=== PATIENT | male | born 1990 | race Caucasian/White ===

== ENCOUNTER 2019-05-12 15:48 | Outpatient (REF) | payer MEDICAID, SELFPAY | END 2019-05-12 16:08 | LOC: NCHCN 15:48 | PROVIDERS: PCP Specialist/Technologist Athletic Trainer; Visit Provider Nurse Practitioner Family | DX: J06.9 Acute upper respiratory infection, unspecified (principal) | CPT/HCPCS: 87070 ==

== ENCOUNTER 2019-07-28 20:27 | Outpatient (REF) | payer MEDICAID, SELFPAY | END 2019-07-28 20:47 | LOC: NCHCN 20:27 | PROVIDERS: PCP Specialist/Technologist Athletic Trainer; Visit Provider Nurse Practitioner Family | DX: J02.9 Acute pharyngitis, unspecified (principal) | CPT/HCPCS: 87081 ==

== ENCOUNTER 2020-05-10 13:36 | Emergency (ER) | payer MEDICAID, SELFPAY ==
[2020-05-10 13:41] VITALS: BP 136/96; PULSE 84; RESP 16; TEMP 36.8; O2SAT 95
--- NOTE | 2020-05-10 14:31 | W.ED.GENAD ---
Discharge Plan Disposition Patient Disposition: HOME Condition: Stable Discharge Details Chief Complaint: GenMedical Clinical Impression: Encounter for medical screening examination, Nausea & vomiting Primary Care Provider: [facility] ED Provider: Florin Milton Home Meds and New Rx's Prescriptions: No Action No Known Home Meds RF: 0 Discharge Instructions Instructions: Acute Nausea and Vomiting (ED) Additional Instructions: At this time you do not have a fever. Further work-up in the ER was offered but declined. Please watch for new or worsening symptoms and return to the ER for any concerns. Clear liquid diet, advance diet as tolerated. I do recommend you reach out to your primary care provider for prompt outpatient reevaluation Medical Decision Making 29-year-old gentleman who denies any significant past medical history presents for evaluation. He is requesting that his temperature be checked. He woke up around noon today, did not feel well in general, had one episode of vomiting. Now is asymptomatic. Temperature check at work was 95.8 and he did not believe this temperature to be accurate. He reports his parents are diabetics. Fingerstick here in the ER is 128. Temperature here in the ER of 36.8. Blood pressure 136/96. Pulse 84, O2 sats 95% on room air. We discussed his vital signs including his temperature, patient is currently afebrile. Patient has no additional questions or concerns and is requesting to be discharged. I spoke with the patient regarding his symptoms, discussed that we could offer laboratory values such as blood work and urinalysis, give fluids whether this be through an IV or orally, and nausea medication. He declines this and is relieved that he does not have a fever, would like to be discharged. HPI General Mode of arrival: ambulatory. Date/Time Provider Initiated Documentation: 05/10/20 13:44. Limitations to Documentation: no limitations. Information obtained by: patient. HPI Narrative: 29-year-old gentleman with no past medical history presents to the ER requesting his temperature. Being checked. He woke up around noon today, reports he generally did not feel well. He felt warm, sweaty, had a mild nausea and heartburn. He had 1 episode of vomiting at work. Since that time he reports that he actually feels significantly better, denies any nausea or vomiting now. Has been able to hold down juice without difficulty. He states that they checked his temperature at work and it was 95.8 and he felt as though that was too low so he wanted to come to the ER to have a temperature rechecked. He is currently asymptomatic. Related Data Home Medications Medication Instructions Recorded Confirmed Unknown [No Known Home Meds] 05/10/20 05/10/20 Allergies Allergy/AdvReac Type Severity Reaction Status Date / Time No Known Allergies Allergy Unverified 05/10/20 13:50 General Stated Complaint: GenMedical [place]: 3 Review of Systems Constitutional Constitutional: Denies fatigue, Denies fever(s) and Denies headache(s) ENT Ears, Nose, Mouth, and Throat: Denies headache(s) and Denies sore throat Cardiovascular Cardiovascular: Denies chest pain and Denies dyspnea Respiratory Respiratory: Denies cough and Denies dyspnea Gastrointestinal Gastrointestinal: Denies abdominal pain, Reports nausea and Reports vomiting Genitourinary Genitourinary: Denies difficulty urinating Musculoskeletal Musculoskeletal: Denies back pain Neurologic Neurologic: Denies headache(s) Endocrine Endocrine: Denies fatigue [facility] Social History Smoking/Tobacco Use Status: Current every day Tobacco Type: cigarettes Alcohol Intake: current Alcohol Intake frequency: 0-2 drinks per day Alcohol type: hard liquor Drug use: Never Substance use type: does not use Do you feel safe at home: Yes Do you feel safe in your relationship?: Yes Exam Const General: cooperative, healthy appearing, comfortable and no acute distress Orientation: alert, awake and oriented x3 HENMT Head: normal to inspection, normocephalic and atraumatic Ears: external ears normal, TM's normal bilaterally and EAC's normal General nose exam: external nose normal Face and sinus: normal facial exam Mouth: oral mucosae normal and moist mucous membranes Throat: posterior oropharynx normal Eyes Conjunctivae: conjunctivae normal Sclera: sclerae normal Neck Neck: normal visual inspection, full ROM, no lymphadenopathy, no meningeal signs, trachea midline, supple and nontender Resp Effort & Inspection: normal respiratory effort and able to speak in complete sentences Auscultation: clear to auscultation bilaterally Cardio Rate: regular rate Rhythm: regular rhythm GI Palpation: soft and nontender Back/Spine/Pelvis Back: No back tenderness Neuro General: patient alert, patient awake, moves all extremities and no focal motor deficits Cognition: normal cognition Speech: speech normal Gait: normal gait Motor: muscle tone normal throughout Sensory Exam: no sensory deficits noted Psych Appearance: grossly normal Mental Status: mental status grossly normal Course Vital Signs Vital signs: Vital Signs Temperature 36.8 C 05/10/20 13:41 Pulse 84 05/10/20 13:41 Respiratory Rate 16 05/10/20 13:41 Blood Pressure 136/96 H 05/10/20 13:41 Pulse Oximetry 95 05/10/20 13:41 Temperature 36.8 C 05/10/20 13:41 Temperature Source Oral 05/10/20 13:41 Pulse 84 05/10/20 13:41 Respiratory Rate 16 05/10/20 13:41 Respiratory Effort Non-Labored 05/10/20 14:00 Respiratory Depth Normal 05/10/20 14:00 Respiratory Pattern Normal 05/10/20 14:00 Blood Pressure 136/96 H 05/10/20 13:41 Blood Pressure Position Sitting 05/10/20 13:41 Pulse Oximetry 95 05/10/20 13:41 Oxygen Delivery Method Room Air 05/10/20 13:41 Oxygen Flow Rate 0 05/10/20 13:41 Pain Level 0 05/10/20 13:41
== END 2020-05-10 14:41 | disposition home or self-care (01) ==
PROVIDERS: Emergency Provider Physician Assistant; PCP Specialist/Technologist Athletic Trainer
DX: R11.2 Nausea with vomiting, unspecified (principal); Z83.3 Family history of diabetes mellitus
CPT/HCPCS: 36416; 82962; 99282

== ENCOUNTER 2020-11-21 20:43 | Outpatient (REF) | payer MEDICAID, SELFPAY ==
[2020-11-23 13:13] LABS: COVID-19 RT-PCR UVMMC Result Negative (Negative)
== END 2020-11-21 20:44 | disposition home or self-care (01) ==
LOC: NCHCN 20:43
PROVIDERS: PCP Specialist/Technologist Athletic Trainer; Visit Provider Acupuncturist
DX: Z20.822 Contact with and (suspected) exposure to COVID-19 (principal); J06.9 Acute upper respiratory infection, unspecified
CPT/HCPCS: U0003

== ENCOUNTER 2021-07-05 16:25 | Outpatient (REF) | payer MEDICAID, SELFPAY ==
[2021-07-07 16:04] LABS: COVID-19 RT-PCR UVMMC Result Negative (Negative)
== END 2021-07-05 16:26 | disposition home or self-care (01) ==
LOC: LBN 16:25
PROVIDERS: PCP Specialist/Technologist Athletic Trainer; Visit Provider Physician Assistant Medical
DX: Z20.822 Contact with and (suspected) exposure to COVID-19 (principal); J02.9 Acute pharyngitis, unspecified
CPT/HCPCS: U0003; 87070

== ENCOUNTER 2021-11-29 12:39 | Emergency (ER) | payer MEDICAID, SELFPAY ==
[2021-11-29 12:50] VITALS: BP 144/94; PULSE 79; RESP 16; TEMP 36.5; O2SAT 98
--- NOTE | 2021-11-29 13:30 | W.ED.GENAD ---
Discharge Plan Disposition Patient Disposition: HOME Condition: Stable Discharge Details Clinical Impression: Carpal tunnel syndrome Primary Care Provider: Unknown,Unknown ED Provider: Madeline Kern Home Meds and New Rx's Prescriptions: New diclofenac sodium [Voltaren Arthritis Pain] 1 % gel 2 g topical QID Qty: 100 0RF Rx Instructions: apply to single elbow, wrist or hand; for hand includes palm/fingers/back of hand Discharge Instructions Additional Instructions: Use your splint as instructed Limit repetitive motion Follow-up with physical therapy I am giving you a week off of work, take ibuprofen 600 mg every 8 hours with food Take Tylenol 650 mg every 6 hours as needed for pain Use leg may apply the diclofenac gel, if your insurance does not cover this medication, you may purchase [id number] and is likely less expensive Stand Alone Forms: Physical Therapy Referral, Work Release Referrals: Aleksander Young MD [ [facility] STAFF PHYSICIAN] - Discharge Data Discharge Date/Time-TO BE ENTERED AT DEPARTURE: 11/29/21 13:40 Medical Decision Making Phalen's test positive, high suspicion for carpal tunnel syndrome unfortunately bilaterally Wrist splint and referral to orthopedics in the outpatient setting I think patient would benefit from physical therapy prior to seeing orthopedics for conservative therapy no evidence of infectious etiology of patient's complaints Instructed to take ibuprofen Given a week off as this was likely a repetitive use injury No clear indication for x-ray imaging, now with trauma to the affected area, tenderness to bilateral elbows Neurovascularly intact Medical Records Medical records reviewed: Yes I reviewed the patient's medical records. Lab Data Lab results reviewed: Yes I reviewed the patient's lab results. HPI General Date/Time Provider Initiated Documentation: 11/29/21 13:17. HPI Narrative: This 31-year-old gentleman presents with bilateral wrist pain, left worse than right. 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 He states that this has dramatically worsened his pain. He has radiation into his middle finger. He states in the morning pain is worse. He has not followed up with his PCP. He denies any additional complaints at this time. Denies any strength change. States that he had a week off from work his symptoms improved. Denies any known traumatic injury. Related Data Home Medications Medication Instructions Recorded Confirmed diclofenac sodium 1 % topical gel 2 g TOPICAL QID #100 g 11/29/21 (Voltaren Arthritis Pain) Previous Rx's Medication Instructions Recorded diclofenac sodium 1 % topical gel 2 g TOPICAL QID #100 g 11/29/21 (Voltaren Arthritis Pain) Allergies Allergy/AdvReac Type Severity Reaction Status Date / Time No Known Allergies Allergy Unverified 11/29/21 12:57 General Stated Complaint: Orthopedic [place]: 4 Review of Systems All systems reviewed & are unremarkable except as noted in HPI and below PFSH All Active Problems (Updated 11/29/21 @ 13:36 by LATOYA Jones) Vomiting (Acute) Carpal tunnel syndrome (Acute) Social History Smoking/Tobacco Use Status: Current every day Tobacco Type: cigarettes Smoking risk assessment performed?: Yes Alcohol Intake: current Alcohol Intake frequency: a few times a week Alcohol type: hard liquor Drug use: Never Substance use type: does not use Do you feel safe at home: Yes Do you feel safe in your relationship?: Yes Exam Const General: cooperative, comfortable and no acute distress Extrem Other: Bilateral wrist tenderness, left greater than right Phalen's test positive Neurovascularly intact, no erythema or evidence of secondary infection Course Vital Signs Vital signs: Vital Signs Temperature 36.5 C 11/29/21 12:50 Pulse 79 11/29/21 12:50 Respiratory Rate 16 11/29/21 12:50 Blood Pressure 144/94 H 11/29/21 12:50 Pulse Oximetry 98 11/29/21 12:50 Temperature 36.5 C 11/29/21 12:50 Temperature Source Temporal Artery Scan 11/29/21 12:50 Pulse 79 11/29/21 12:50 Respiratory Rate 16 11/29/21 12:50 Respiratory Effort Non-Labored 11/29/21 12:55 Blood Pressure 144/94 H 11/29/21 12:50 Blood Pressure Position Sitting 11/29/21 12:50 Pulse Oximetry 98 11/29/21 12:50 Oxygen Delivery Method Room Air 11/29/21 12:50 Oxygen Flow Rate 0 11/29/21 12:50 Pain Level 3 11/29/21 12:58 PAWSS Have you Been Recently Intoxicated or Drunk Within the Last 30 days?: No Have you Ever Experienced Previous Episodes of Alcohol Withdrawal?: No Have you ever Experienced Withdrawal Seizures?: No Have you ever Experienced Delirium Tremens(DT)s?: No Have you ever undergone Alcohol Rehabilitation Treatment (i.e, inpt ot outpatient treatment programs)?: No Have you ever Experienced Blackouts?: No Have you ever Combined Alcohol with other Downers within the last 90 days?: No Have you ever Combined Alcohol with any other Substance of Abuse during the last 90 days?: No Positive Blood Alcohol level on Presentation? [PCS.BAL]: No Evidence of Increased Autonomic Activity (i.e. HR>120, tremor, sweating, agitation, nausea)?: No Result: 0
== END 2021-11-29 13:40 | disposition home or self-care (01) ==
PROVIDERS: Emergency Provider Physician Assistant
DX: G56.03 Carpal tunnel syndrome, bilateral upper limbs (principal)
CPT/HCPCS: 29125; 99283

== ENCOUNTER 2022-01-17 04:24 | Outpatient (CLI) | payer MEDICAID, SELFPAY ==
[2022-01-17 11:20] LABS: Glucose 165 mg/dL (74-106)
[2022-01-17 11:27] LABS: Calculated LDL 168 mg/dL (<100); Cholesterol 245 mg/dL (<200); HDL Cholesterol 41 mg/dL (40-60); Triglyceride 184 mg/dL (<150)
[2022-01-18 09:35] LABS: Hepatitis C Ab w Rflx HCV PCR Negative (Negative)
[2022-01-18 09:53] LABS: HIV-1/2 Ag & Ab Screen Negative (Negative)
== END 2022-01-17 04:25 | disposition home or self-care (01) ==
LOC: LBO 04:24
PROVIDERS: PCP Nurse Practitioner Family; Visit Provider Nurse Practitioner Family
DX: Z13.220 Encounter for screening for lipoid disorders (principal); Z13.1 Encounter for screening for diabetes mellitus; Z11.59 Encounter for screening for other viral diseases; Z11.4 Encounter for screening for human immunodeficiency virus [HIV]
CPT/HCPCS: 36415; 80061; 82947; 86803; 87389

== ENCOUNTER 2022-04-09 17:10 | Outpatient (REF) | payer MEDICAID, SELFPAY | END 2022-04-09 17:11 | disposition home or self-care (01) | LOC: LBN 17:10 | PROVIDERS: PCP Nurse Practitioner Family; Visit Provider Physician Assistant | DX: J02.9 Acute pharyngitis, unspecified (principal) | CPT/HCPCS: 87077; 87070 ==

== ENCOUNTER 2022-05-19 15:22 | Emergency (ER) | payer MEDICAID, SELFPAY ==
[2022-05-19 15:26] VITALS: BP 152/103; PULSE 102; RESP 16; TEMP 36.7; O2SAT 98
--- NOTE | 2022-05-19 15:56 | W.ED.GENAD ---
Discharge Plan Disposition Patient Disposition: HOME Condition: Stable Discharge Details Clinical Impression: Left flank pain, Leukocytosis Primary Care Provider: Daniella Stout ED Provider: Florin Milton Home Meds and New Rx's Prescriptions: No Action No Known Home Meds Discharge Instructions Instructions: Leukocytosis (ED), Flank Pain (ED) Additional Instructions: Your work-up in the ER reveals an unspecific mild elevated white count. We discussed the next step to further evaluate this would be a CAT scan which you would prefer not to pursue at this time. [id number] Tylenol and/or Motrin as directed for discomfort. Please watch for new or worsening symptoms and return to the ER for any concerns. Lastly, please contact your primary care provider on Saturday to discuss your ER visit, ongoing symptoms, need for outpatient reevaluation. Medical Decision Making This is a 31-year-old gentleman who is otherwise healthy presenting for a left-sided flank pain that began a couple of days ago, feels like he pulled a muscle in his sleep. He reports he went to bed asymptomatic and woke up with the pain. He denies recent illness or trauma. Denies any other symptoms such as fever, chest pain, shortness of breath, back pain, nausea, vomiting, dysuria, hematuria, etc. He reports alcohol use a couple times a week. Plan is to obtain IV access, routine screening laboratory values including a lipase and a urinalysis CBC reveals nonspecific leukocytosis of 13.64 CMP unremarkable for any obvious emergent process. Urinalysis unremarkable. Lipase of 66. No clear explanation of the symptoms. He does report it feels like a pulled muscle and is worse with movement, certainly could be but given his presentation of tachycardia of 102 in triage will obtain an EKG, troponin and D-dimer Troponin and D-dimer unremarkable. Heart rate in the 80s. He appears well, nontoxic. Chest x-ray and EKG are both unremarkable Upon reevaluation he appears well, nontoxic. We discussed his work-up thus far. No clear explanation of his symptoms or leukocytosis although he appears well, nontoxic. At this time we discussed obtaining CT imaging of his abdomen and pelvis with IV contrast for further evaluation but given the duration he has stayed in the ER already he declines. He would rather treat his symptoms and watch watch carefully. Plan is to provide 30 IV Toradol now he was given strict return precautions and otherwise will reach out to his primary care provider on Saturday Standard discharge and return precautions were provided. Patient understands, is agreeable to this plan, and has no additional questions or concerns upon discharge. This documentation was generated using Proximusation system, please disregard any oddities of phrase or misspellings. Medical Records Medical records reviewed: Yes I reviewed the patient's medical records. Imaging Data Radiologic Study: Attestation: I personally reviewed and interpreted this imaging study as follows: Imaging: X-Ray Radiologist's impression: PROCEDURE INFORMATION: Exam: XR Chest Exam date and time: 05/19/2022 5:37 PM Age: 31 years old Clinical indication: Other: Luq pain TECHNIQUE: Imaging protocol: Radiologic exam of the chest. Views: 2 views. COMPARISON: CR CHEST 2 VIEWS PA,LAT 05/20/2015 10:53 AM FINDINGS: Lungs: Unremarkable. No consolidation. Pleural spaces: Unremarkable. No pleural effusion. No pneumothorax. Heart/Mediastinum: Unremarkable. No cardiomegaly. Bones/joints: Unremarkable. IMPRESSION: No acute findings. Lab Data Lab results reviewed: Yes I reviewed the patient's lab results. Labs: Laboratory Tests Range/Units 05/19/22 05/19/22 05/19/22 15:35 16:20 16:20 WBC (4.4-10.8) 10^3/uL 13.64 H RBC (4.36-5.78) 10^6/uL 4.79 Hgb (13.5-17.5) g/dL 15.1 Hct (40.0-50.0) % 42.0 MCV (80-95) fL 88 MCH (27.0-33.0) pg 31.5 MCHC (32.0-36.0) % 36.0 RDW (11.8-14.1) % 12.2 Plt Count (130-400) 10^3/uL 363 MPV (8.0-11.0) fL 9.4 Immature Gran % 1.2 Neutrophils % 67.8 Lymphocytes % 22.3 Monocytes % 5.8 Eosinophils % 2.5 Basophils % 0.4 Nucleated RBC % (0.0-0.3) % 0.0 Absolute Neutrophils (1.2-6.7) 10^3/uL 9.25 H Absolute Lymphocytes (1.2-3.4) 10^3/uL 3.04 Absolute Monocytes (0.1-0.8) 10^3/uL 0.79 Absolute Eosinophils (0.0-0.7) 10^3/uL 0.34 Absolute Basophils (0.0-0.2) 10^3/uL 0.05 D-Dimer (<500) ng/mlFEU Sodium (136-145) mmol/L 136 Potassium (3.5-5.1) mmol/L 4.0 Chloride (98-107) mmol/L 99 Carbon Dioxide (21.0-32.0) mmol/L 28.1 Anion Gap (3-11) mmol/L 8.9 BUN (7-18) mg/dL 10 Creatinine (0.70-1.30) mg/dL 0.8 Est GFR (CKD-EPI 2020) (mL/min/1.73m2) 122.86 Glucose (74-106) mg/dL 116 H Calcium (8.5-10.1) mg/dL 9.5 Total Bilirubin (0.2-1.0) mg/dL 0.3 AST (15-37) U/L 33 ALT (16-63) U/L 67 H Alkaline Phosphatase (46-116) U/L 97 Troponin I (<or=60) ng/L Total Protein (6.4-8.2) g/dL 8.6 H Albumin (3.4-5.0) g/dL 3.8 Lipase (73-393) U/L 66 Urine Color (Yellow) Yellow Urine Clarity (Clear) Sl Cloudy Urine pH (5-8) 6.0 Ur Specific [place] (1.005-1.025) >= 1.030 H Urine Protein (Negative) mg/dL Negative Urine Ketones (Negative) mg/dL Negative Urine Blood (Negative) Negative Urine Nitrite (Negative) Negative Urine Bilirubin (Negative) Negative Urine Urobilinogen (Up TO 0.2) EU/dL 0.2 Ur Leukocyte Esterase (Negative) Negative Urine Glucose (Negative) mg/dL Negative COVID-19 Source SARS-CoV-2 (PCR) (Negative) Range/Units 05/19/22 05/19/22 05/19/22 16:20 17:49 17:50 WBC (4.4-10.8) 10^3/uL RBC (4.36-5.78) 10^6/uL Hgb (13.5-17.5) g/dL Hct (40.0-50.0) % MCV (80-95) fL MCH (27.0-33.0) pg MCHC (32.0-36.0) % RDW (11.8-14.1) % Plt Count (130-400) 10^3/uL MPV (8.0-11.0) fL Immature Gran % Neutrophils % Lymphocytes % Monocytes % Eosinophils % Basophils % Nucleated RBC % (0.0-0.3) % Absolute Neutrophils (1.2-6.7) 10^3/uL Absolute Lymphocytes (1.2-3.4) 10^3/uL Absolute Monocytes (0.1-0.8) 10^3/uL Absolute Eosinophils (0.0-0.7) 10^3/uL Absolute Basophils (0.0-0.2) 10^3/uL D-Dimer (<500) ng/mlFEU 333 Sodium (136-145) mmol/L Potassium (3.5-5.1) mmol/L Chloride (98-107) mmol/L Carbon Dioxide (21.0-32.0) mmol/L Anion Gap (3-11) mmol/L BUN (7-18) mg/dL Creatinine (0.70-1.30) mg/dL Est GFR (CKD-EPI 2020) (mL/min/1.73m2) Glucose (74-106) mg/dL Calcium (8.5-10.1) mg/dL Total Bilirubin (0.2-1.0) mg/dL AST (15-37) U/L ALT (16-63) U/L Alkaline Phosphatase (46-116) U/L Troponin I (<or=60) ng/L < 50 Total Protein (6.4-8.2) g/dL Albumin (3.4-5.0) g/dL Lipase (73-393) U/L Urine Color (Yellow) Urine Clarity (Clear) Urine pH (5-8) Ur Specific [place] (1.005-1.025) Urine Protein (Negative) mg/dL Urine Ketones (Negative) mg/dL Urine Blood (Negative) Urine Nitrite (Negative) Urine Bilirubin (Negative) Urine Urobilinogen (Up TO 0.2) EU/dL Ur Leukocyte Esterase (Negative) Urine Glucose (Negative) mg/dL COVID-19 Source Nasal/Nares SARS-CoV-2 (PCR) (Negative) Negative ECG Data Attestation: I personally reviewed and interpreted this ECG (s) as follows: Interpretation: Sinus rhythm, ventricular rate of 82. No STEMI. HPI General Mode of arrival: ambulatory. Date/Time Provider Initiated Documentation: 05/19/22 15:32. Limitations to Documentation: no limitations. Information obtained by: patient. History of Present Illness 31 year old M presents to the emergency department with the chief complaint of LUQ/Flank pain, described as moderate, with intensity rated at 6. Quality is described as aching and sharp, and is localized to the abdomen and left. Patient reports no radiation. Patient started experiencing this day(s) (2) and it has been other (worsening). No relieving factors improve symptom(s), Movement worsens symptoms . Patient notes no other symptoms.. Patient did receive the following treatments prior to arrival, none Related Data Home Medications Medication Instructions Recorded Confirmed Unknown [No Known Home Meds] 05/19/22 05/19/22 Allergies Allergy/AdvReac Type Severity Reaction Status Date / Time No Known Allergies Allergy Verified 05/19/22 15:30 General Stated Complaint: FlankPain [place]: 3 Review of Systems Constitutional Constitutional: Denies fever(s) and Denies weakness ENT Ears, Nose, Mouth, and Throat: Denies neck pain Cardiovascular Cardiovascular: Denies chest pain and Denies dyspnea Respiratory Respiratory: Denies dyspnea Gastrointestinal Gastrointestinal: Reports abdominal pain, Denies melena, Denies hematochezia, Reports diarrhea (chronic), Denies nausea and Denies vomiting Genitourinary Genitourinary: Denies hematuria and Denies dysuria Musculoskeletal Musculoskeletal: Denies back pain and Denies neck pain Integumentary/Breasts Skin/Breast: Denies rash Neurologic Neurologic: Denies weakness Hematologic/Lymphatic Hematologic/Lymphatic: Denies easy bleeding and Denies easy bruising PFSH All Active Problems (Updated 05/19/22 @ 19:47 by LATOYA Barreto) Left flank pain (Acute) Leukocytosis (Acute) Tobacco use disorder (Chronic) Medical History Anxiety Tx with fluoxetine in the past Depression Tx with fluoxetine in the past Panic disorder Family History Mother Asthma Depression Diabetes Father Diabetes Blindness and renal failure 2/2 DM Heart disease Maternal Grandmother Cancer Social History Smoking/Tobacco Use Status: Current every day Tobacco Type: cigarettes Smoking packs per day: 0.75 Smoking cigarettes per day: 15.0 Years smoked: 15 Smoking pack-years: 11.25 Tobacco: How many years used: 10 Quit status: not considering quitting Second Hand Exposure: Yes Smoking risk assessment performed?: Yes Alcohol Intake: current Alcohol Intake frequency: a few times a week Alcohol type: hard liquor Details: 12/2021: 1-2 times per week, ~6 servings at a time Drug use: Never Substance use type: does not use Adopted: No Caregiver/Support person: No Foster care: No Household members: significant other Housing: apartment Number of Children: 2 Communication Needs: None Education Level: middle school Do you need help understanding health information?: Never current occupation: Cook at [employer] Pets and animals: Yes (rabbit) Sexually active: Yes Do you think of yourself as: straight/heterosexual Current gender identity: male Other: 12/2021: Two kids, ages 2 & 4, adopted by mother's aunt, w/ occ contac What is your relationship status?: living with partner How often do you talk on the phone with friends or family?: twice per week How often do you get together with friends or relatives?: twice per week Do you belong to any clubs or organized social groups?: no Panel score (0-1 are the most socially isolated patients): 2 What type of physical activity do you participate in: none Frequency: does not exercise Dorina/Adventist: None Special dorina needs: No Seatbelt use: sometimes Helmet use: Yes Helmet use: sometimes Drive intox or ride w/intox superintendent drivers: No Do you feel safe at home: Yes Do you feel safe in your relationship?: Yes Exam Const General: cooperative, healthy appearing, comfortable and no acute distress Orientation: alert and awake [facility] Head: normal to inspection, normocephalic and atraumatic Face and sinus: normal facial exam Mouth: moist mucous membranes Eyes General: appearance normal, both eyes and all related structures Conjunctivae: conjunctivae normal Neck Neck: normal visual inspection, full ROM, trachea midline and supple Chest Chest: normal inspection of the chest Resp Effort & Inspection: normal respiratory effort and able to speak in complete sentences Auscultation: clear to auscultation bilaterally Cardio Rate: regular rate Rhythm: regular rhythm GI Inspection: normal to inspection Palpation: soft, not firm, no guarding, no pulsatile masses and tender in the LUQ (Left flank and extend to the inferior); not in the epigastrum and with no rebound tenderness Auscultation: normal bowel sounds Back/Spine/Pelvis Back: no CVA tenderness and No back tenderness Skin General skin exam: no rashes or lesions noted Neuro General: patient alert, patient awake, moves all extremities and no focal motor deficits Cognition: normal cognition Speech: speech normal Gait: normal gait Motor: muscle tone normal throughout Sensory Exam: no sensory deficits noted Extrem General: normal to inspection, full ROM, capillary refill normal, no pedal edema and no calf tenderness Psych Appearance: grossly normal Mental Status: mental status grossly normal Course Vital Signs Vital signs: Vital Signs Temperature 36.7 C 05/19/22 15:26 Pulse 102 H 05/19/22 15:26 Respiratory Rate 16 05/19/22 15:26 Blood Pressure 152/103 H 05/19/22 15:26 Pulse Oximetry 98 05/19/22 15:26 Temperature 36.7 C 05/19/22 15:26 Temperature Source Skin 05/19/22 15:26 Pulse 102 H 05/19/22 15:26 Respiratory Rate 16 05/19/22 15:26 Respiratory Effort 05/19/22 15:31 Blood Pressure 152/103 H 05/19/22 15:26 Blood Pressure Position Sitting 05/19/22 15:26 Pulse Oximetry 98 05/19/22 15:26 Oxygen Delivery Method Room Air 05/19/22 15:26 Oxygen Flow Rate 0 05/19/22 15:26 Pain Level 6 05/19/22 15:34 PAWSS Have you Been Recently Intoxicated or Drunk Within the Last 30 days?: No Have you Ever Experienced Previous Episodes of Alcohol Withdrawal?: No Have you ever Experienced Withdrawal Seizures?: No Have you ever Experienced Delirium Tremens(DT)s?: No Have you ever undergone Alcohol Rehabilitation Treatment (i.e, inpt ot outpatient treatment programs)?: No Have you ever Experienced Blackouts?: No Have you ever Combined Alcohol with other Downers within the last 90 days?: No Have you ever Combined Alcohol with any other Substance of Abuse during the last 90 days?: No Positive Blood Alcohol level on Presentation? [PCS.BAL]: No Result: 0
[2022-05-19 16:08] LABS: Bilirubin Negative (Negative); Blood Negative (Negative); Clarity Sl Cloudy (Clear); Glucose Negative (Negative); Ketones Negative (Negative); Leukocyte Esterase Negative (Negative); Nitrite Negative (Negative); Specific Gravity >= 1.030 (1.005-1.025); Urobilinogen 0.2 EU/dL (Up TO 0.2)
[2022-05-19] MEDS: Normal Saline 1,000 ML 1000 ML IV (16:29)
[2022-05-19 16:45] LABS: Abs Immature Grans 0.17 10^3/uL (0.0-0.06); Absolute Eosinophil Count 0.34 10^3/uL (0.0-0.7); Absolute Lymphocyte Count 3.04 10^3/uL (1.2-3.4); Absolute Monocyte Count 0.79 10^3/uL (0.1-0.8); Basophils % 0.4; Eosinophils % 2.5; HGB 15.1 g/dL (13.5-17.5); Immature Grans % 1.2; Lymphocytes % 22.3; MCH 31.5 pg (27.0-33.0); MCV 88 fL (80-95); MPV 9.4 fL (8.0-11.0); Monocytes % 5.8; Neutrophils % 67.8; Platelet Count 363 10^3/uL (130-400); RBC 4.79 10^6/uL (4.36-5.78); RDW 12.2 % (11.8-14.1); RDW-SD 39.3 fL; WBC 13.64 10^3/uL (4.4-10.8)
[2022-05-19 16:47] LABS: Absolute Basophil Count 0.05 10^3/uL (0.0-0.2); Absolute Neutrophil Count 9.25 10^3/uL (1.2-6.7)
--- NOTE | 2022-05-19 17:00 | DI.RAD_ITS ---
Exam(s) XR CHEST 2V PA LATERAL EXAM: XR CHEST 2V PA LATERAL CLINICAL HISTORY: LUQ pain TECHNIQUE: 2D digital imaging was performed. COMPARISON: CR CHEST 2 VIEWS PA,LAT from 05/20/2015 FINDINGS: The heart is not enlarged. The lungs are clear and well expanded. No pleural effusion seen. Mediastin al contours appear intact. IMPRESSION: Normal chest. RADIATION DOSE DELIVERED: Total DLP
--- NOTE | 2022-05-19 17:00 | RT.EKG_ITS ---
APPROVED REPORT Exam: Resting ECG Reason for Exam: LUQ pain Patient Location: E HR:82 bpm ECG Measurements Heart Rate 82 AXIS MN 140 P 31 QRSd 96 QRS 45 QT 347 T -13 QTc 406 Conclusion Sinus rhythm...normal P axis, V-rate 60- 99
[2022-05-19 17:09] LABS: ALT 67 U/L (16-63); AST 33 U/L (15-37); Albumin 3.8 g/dL (3.4-5.0); Alkaline Phosphatase 97 U/L (46-116); Anion Gap 8.9 mmol/L (3-11); BUN 10 mg/dL (7-18); Bilirubin, Total 0.3 mg/dL (0.2-1.0); CO2 28.1 mmol/L (21.0-32.0); CREATININE 0.8 mg/dL (0.70-1.30); Calcium 9.5 mg/dL (8.5-10.1); Chloride 99 mmol/L (98-107); Estimated GFR 122.86 (mL/min/1.73m2); Glucose 116 mg/dL (74-106); Lipase 66 U/L (73-393); Sodium 136 mmol/L (136-145); Total Protein 8.6 g/dL (6.4-8.2)
[2022-05-19 17:38] LABS: Troponin I < 50 ng/L (<or=60)
--- NOTE | 2022-05-19 17:48 | DI.VRAD_ITS ---
PROCEDURE INFORMATION: Exam: XR Chest Exam date and time: 05/19/2022 5:37 PM Age: 31 years old Clinical indication: Other: Luq pain TECHNIQUE: Imaging protocol: Radiologic exam of the chest. Views: 2 views. COMPARISON: CR CHEST 2 VIEWS PA,LAT 05/20/2015 10:53 AM FINDINGS: Lungs: Unremarkable. No consolidation. Pleural spaces: Unremarkable. No pleural effusion. No pneumothorax. Heart/Mediastinum: Unremarkable. No cardiomegaly. Bones/joints: Unremarkable. IMPRESSION: No acute findings. Dictated and Authenticated by: Elian Tian MD. Ordering:RUBIO Catherine MD
[2022-05-19 17:58] LABS: Source Nasal/Nares
[2022-05-19 18:30] LABS: COVID-19 PCR Negative (Negative)
[2022-05-19 18:41] LABS: D-Dimer 333 ng/mlFEU (<500)
[2022-05-19] MEDS: Ketorolac 30 MG/ML VIAL IVP (19:00)
[2022-05-19 20:00] VITALS: BP 138/78; PULSE 88; RESP 18; O2SAT 97
== END 2022-05-19 19:56 | disposition home or self-care (01) ==
PROVIDERS: Emergency Provider Physician Assistant; PCP Nurse Practitioner Family
DX: R10.12 Left upper quadrant pain (principal); D72.829 Elevated white blood cell count, unspecified; F17.210 Nicotine dependence, cigarettes, uncomplicated; R00.0 Tachycardia, unspecified; Z20.822 Contact with and (suspected) exposure to COVID-19
CPT/HCPCS: 36415; 80053; 83690; 87635; 93005; 96361; 96374; 99284; 71046; 81003; 84484; 85025; 85379; 93010; J1885

== ENCOUNTER 2022-07-30 13:51 | Emergency (ER) | payer MEDICAID, SELFPAY ==
--- NOTE | 2022-07-30 13:45 | RT.EKG_ITS ---
APPROVED REPORT Exam: Resting ECG Reason for Exam: dizziness Patient Location: E HR:76 bpm ECG Measurements Heart Rate 76 AXIS DC 118 P 41 QRSd 101 QRS 67 QT 349 T -52 QTc 393 Conclusion Sinus rhythm...normal P axis, V-rate 60- 99 Nonspecific T abnormalities, inferior leads...T <-0.10mV, II III aVF sinus rhythm, normal axis, normal intervals, consider motion artifact inferior leads
[2022-07-30 13:59] VITALS: BP 137/100; PULSE 87; RESP 18; TEMP 36.8; O2SAT 99
[2022-07-30 14:03] VITALS: RESP 18
--- NOTE | 2022-07-30 15:15 | W.ED.GENAD ---
Discharge Plan Disposition Patient Disposition: Home Condition: Improving Discharge Details Chief Complaint: Dizzy/Sync Clinical Impression: Acute viral syndrome Primary Care Provider: Daniella Stout ED Provider: Rick Chopra Home Meds and New Rx's Prescriptions: No Action No Known Home Meds Discharge Instructions Instructions: Viral Syndrome (ED) Additional Instructions: Please follow-up with your primary care physician Stand Alone Forms: Work Release Medical Decision Making 32-year-old male presents with resolving symptoms of a viral illness including dry cough body aches and loose stool. Feeling much better than he has been over the past couple of days. Missed some work and is requesting a work note. Patient is hemodynamically stable resting comfortably no respiratory distress lungs are clear bilaterally, afebrile nontoxic well-hydrated appearing. Offered dexamethasone for anti-inflammatory purposes. Will dose here in department. Home care instructions and return precautions given. Likely viral syndrome such as influenza COVID or other viral etiology, unlikely serious bacterial infection. Sign Out No HPI General Date/Time Provider Initiated Documentation: 07/30/22 15:01. HPI Narrative: 32-year-old male presents with several days of dry cough body aches and 1 to 2 days of loose stool. Endorses that his symptomatology has gotten better over the past couple of days. Had to miss some work and is requesting a work note. Related Data Home Medications Medication Instructions Recorded Confirmed Unknown [No Known Home Meds] 05/19/22 05/19/22 Allergies Allergy/AdvReac Type Severity Reaction Status Date / Time No Known Allergies Allergy Verified 07/30/22 14:02 General Stated Complaint: Dizzy/Sync [place]: 4 Review of Systems Narrative: Review of Systems Constitutional: negative Eyes: negative ENT: negative Cardiovascular: negative Respiratory: Cough Gastrointestinal: Diarrhea : negative Musculoskeletal: negative Skin: negative Neurologic: negative Psych: negative PFSH All Active Problems (Updated 07/30/22 @ 15:19 by Rick Chopra MD) Acute viral syndrome (Acute) Tobacco use disorder (Chronic) Medical History Anxiety Tx with fluoxetine in the past Depression Tx with fluoxetine in the past Panic disorder Family History Mother Asthma Depression Diabetes Father Diabetes Blindness and renal failure 2/2 DM Heart disease Maternal Grandmother Cancer Social History Smoking/Tobacco Use Status: Current every day Tobacco Type: cigarettes Smoking packs per day: 0.75 Smoking cigarettes per day: 15.0 Years smoked: 15 Smoking pack-years: 11.25 Tobacco: How many years used: 10 Quit status: not considering quitting Second Hand Exposure: Yes Smoking risk assessment performed?: Yes Alcohol Intake: current Alcohol Intake frequency: a few times a week Alcohol type: hard liquor Details: 12/2021: 1-2 times per week, ~6 servings at a time Drug use: Never Substance use type: does not use Adopted: No Caregiver/Support person: No Foster care: No Household members: significant other Housing: apartment Number of Children: 2 Communication Needs: None Education Level: middle school Do you need help understanding health information?: Never current occupation: Cook at [employer] Pets and animals: Yes (rabbit) Sexually active: Yes Do you think of yourself as: straight/heterosexual Current gender identity: male Other: 12/2021: Two kids, ages 2 & 4, adopted by mother's aunt, w/ occ contac What is your relationship status?: living with partner How often do you talk on the phone with friends or family?: twice per week How often do you get together with friends or relatives?: twice per week Do you belong to any clubs or organized social groups?: no Panel score (0-1 are the most socially isolated patients): 2 What type of physical activity do you participate in: none Frequency: does not exercise Dorina/Jew: None Special dorina needs: No Seatbelt use: sometimes Helmet use: Yes Helmet use: sometimes Drive intox or ride w/intox over the road driver: No Do you feel safe at home: Yes Do you feel safe in your relationship?: Yes Exam Narrative Exam Narrative: Physical Examination General: alert, awake, cooperative, resting comfortably, no acute distress HEENT: normocephalic, atraumatic; PERRL, EOM intact, conjunctiva normal; no nasal discharge; moist mucous membranes, oral and pharyngeal mucosa normal, tolerating secretions Neck: supple, trachea midline; full ROM Chest: normal to inspection Respiratory: normal respiratory effort, speaking in full sentences, clear to auscultation, no wheezing, rales or rhonchi Cardiac: regular rate, regular rhythm, S1S2 intact, no murmurs rubs or gallops GI: abdomen soft, non-tender, non-distended; no palpable mass or hepatosplenomegaly Skin: no lesions, rashes or trauma appreciated Neuro: AAOx3, normal speech, moving all extremities Psych: Appropriate mood and affect Course Vital Signs Vital signs: Vital Signs Temperature 36.8 C 07/30/22 13:59 Pulse 87 07/30/22 13:59 Respiratory Rate 18 07/30/22 13:59 Blood Pressure 137/100 H 07/30/22 13:59 Pulse Oximetry 99 07/30/22 13:59 Temperature 36.8 C 07/30/22 13:59 Temperature Source Oral 07/30/22 13:59 Pulse 87 07/30/22 13:59 Respiratory Rate 18 07/30/22 14:03 Respiratory Effort Non-Labored 07/30/22 14:03 Respiratory Depth Normal 07/30/22 14:03 Respiratory Pattern Normal 07/30/22 14:03 Blood Pressure 137/100 H 07/30/22 13:59 Blood Pressure Position Sitting 07/30/22 13:59 Pulse Oximetry 99 07/30/22 13:59 Oxygen Delivery Method Room Air 07/30/22 13:59 Oxygen Flow Rate 0 07/30/22 13:59 PAWSS Have you Been Recently Intoxicated or Drunk Within the Last 30 days?: No Have you Ever Experienced Previous Episodes of Alcohol Withdrawal?: No Have you ever Experienced Withdrawal Seizures?: No Have you ever Experienced Delirium Tremens(DT)s?: No Have you ever undergone Alcohol Rehabilitation Treatment (i.e, inpt ot outpatient treatment programs)?: No Have you ever Experienced Blackouts?: No Have you ever Combined Alcohol with other Downers within the last 90 days?: No Have you ever Combined Alcohol with any other Substance of Abuse during the last 90 days?: No Positive Blood Alcohol level on Presentation? [PCS.BAL]: No Evidence of Increased Autonomic Activity (i.e. HR>120, tremor, sweating, agitation, nausea)?: No Result: 0
[2022-07-30] MEDS: Dexamethasone 10 MG/ML VIAL IVP (15:27)
== END 2022-07-30 15:36 | disposition home or self-care (01) ==
PROVIDERS: Emergency Provider Emergency Medicine; PCP Nurse Practitioner Family
DX: B34.9 Viral infection, unspecified (principal); R42 Dizziness and giddiness
CPT/HCPCS: 93005; 96374; 99284; 93010; 99283; J1100

== ENCOUNTER 2023-03-05 11:21 | Emergency (ER) | payer MEDICAID, SELFPAY ==
[2023-03-05 11:23] VITALS: BP 161/106; PULSE 104; RESP 22; TEMP 36.6; O2SAT 96
--- NOTE | 2023-03-05 12:00 | DI.RAD_ITS ---
Exam(s) XR CHEST 2V PA LATERAL EXAM: XR CHEST 2V PA LATERAL CLINICAL HISTORY: cough, shortness of breath. TECHNIQUE: 2D digital imaging was performed. COMPARISON: CR,XR XR CHEST 2V PA LATERAL from 05/19/2022 FINDINGS: 2 views: Heart size is normal. The mediastinum is not widened. Lungs are clear. No infiltrates nor pleural effusions. IMPRESSION: No acute pulmonary findings. DATA REPOSITORY: RADIATION DOSE DELIVERED:
[2023-03-05] MEDS: predniSONE 20 MG TAB 40 MG PO (12:17)
[2023-03-05] MEDS: Albuterol/Ipratropium 3 ML UPD VIAL 6 ML UPD (12:17)
--- NOTE | 2023-03-05 13:13 | ED.GENADUL_ITS ---
Discharge Plan Disposition Patient Disposition: Home Discharge Details Clinical Impression: Bronchitis Primary Care Provider: Daniella Stout ED Provider: Madeline Kern Home Meds and New Rx's Prescriptions: New prednisone 20 mg tablet 40 mg PO ONCE Qty: 10 0RF ondansetron 4 mg tablet,disintegrating 4 mg PO DAILY Qty: 10 0RF Discharge Instructions Instructions: Acute Bronchitis (ED) Additional Instructions: Use your inhaler, 2 puffs every 4-6 hours as needed for cough, wheeze, shortness of breath, I suspect you have bronchitis, I recommend taking Mucinex daily, increasing your fluid hydration, at least ten 8 ounce glasses of water Take the prednisone as prescribed Return earlier should you have fever, chills, chest discomfort, or with any new or worsening complaints Referrals: Daniella Stout, [employer] [Primary Care Provider] - Discharge Data Discharge Date/Time-TO BE ENTERED AT DEPARTURE: 03/05/23 13:36 Medical Decision Making 32-year-old male presents with upper respiratory symptoms for the past week Chest x-ray does not show obvious evidence of pneumonia Lungs sounds are improved at time of reassessment, still some mild wheezing, oxygenation 98% Mild tachycardia, 10 2:07 Combivent nebs, patient reports symptomatic improvement, low suspicion for pulmonary embolism Suspect patient has bronchitis, will place on prednisone No indication for antibiotics at this time Smoking cessation discussed Return precautions reviewed and patient expressed understanding, ambulatory with steady gait without hypoxia at time of discharge home, ambulatory sat 95% COVID-negative HPI General Date/Time Provider Initiated Documentation: 03/05/23 11:59 . HPI Narrative: This 32-year-old male presents with report of shortness of breath cough, runny nose, wheezing, states that symptoms have been going on for the past week. Denies any chest pain or denies fever or chills. Denies any recent flights, surgeries, long drives. she will or history of coagulopathy. Denies any calf pain or swelling. Related Data Home Medications Medication Instructions Recorded Confirmed ondansetron 4 mg disintegrating 4 mg PO DAILY #10 tabs 03/05/23 tablet prednisone 20 mg tablet 40 mg PO ONCE #10 tabs 03/05/23 Previous Rx's Medication Instructions Recorded ondansetron 4 mg disintegrating 4 mg PO DAILY #10 tabs 03/05/23 tablet prednisone 20 mg tablet 40 mg PO ONCE #10 tabs 03/05/23 Allergies Allergy/AdvReac Type Severity Reaction Status Date / Time No Known Allergies Allergy Verified 03/05/23 11:27 General Stated Complaint: RespSymp AUGUSTA: 3 PFSH All Active Problems (Updated 03/05/23 @ 13:24 by LATOYA Jones) Bronchitis (Acute) Tobacco use disorder (Chronic) Medical History Anxiety Tx with fluoxetine in the past Depression Tx with fluoxetine in the past Panic disorder Family History Mother Asthma Depression Diabetes Father Diabetes Blindness and renal failure 2/2 DM Heart disease Maternal Grandmother Cancer Social History Smoking/Tobacco Use Status: Current every day Tobacco Type: cigarettes Smoking packs per day: 0.75 Smoking cigarettes per day: 15.0 Years smoked: 15 Smoking pack-years: 11.25 Tobacco: How many years used: 10 Quit status: not considering quitting Second Hand Exposure: Yes Smoking risk assessment performed?: Yes Alcohol Intake: current Alcohol Intake frequency: a few times a week Alcohol type: hard liquor Details: 12/2021: 1-2 times per week, ~6 servings at a time Drug use: Never Substance use type: does not use Adopted: No Caregiver/Support person: No Foster care: No Household members: significant other Housing: house Number of Children: 2 Communication Needs: None Education Level: middle school Do you need help understanding health information?: Never current occupation: Cook at [employer] Pets and animals: Yes (rabbit) Sexually active: Yes Do you think of yourself as: straight/heterosexual Current gender identity: male Other: 12/2021: Two kids, ages 2 & 4, adopted by mother's aunt, w/ occ contac What is your relationship status?: living with partner How often do you talk on the phone with friends or family?: twice per week How often do you get together with friends or relatives?: twice per week Do you belong to any clubs or organized social groups?: no Panel score (0-1 are the most socially isolated patients): 2 What type of physical activity do you participate in: none Frequency: does not exercise Dorina/Latter-Day: None Special dorina needs: No Seatbelt use: sometimes Helmet use: Yes Helmet use: sometimes Drive intox or ride w/intox day haul or farm charter bus driver: No Do you feel safe at home: Yes Do you feel safe in your relationship?: Yes Course Vital Signs Vital signs: Vital Signs Temperature 36.6 C 03/05/23 11:23 Pulse 104 H 03/05/23 11:23 Respiratory Rate 22 03/05/23 11:23 Blood Pressure 161/106 H 03/05/23 11:23 Pulse Oximetry 96 03/05/23 11:23 Temperature 36.6 C 03/05/23 11:23 Pulse 104 H 03/05/23 11:23 Respiratory Rate 22 03/05/23 11:23 Respiratory Effort Short of Breath 03/05/23 11:25 Respiratory Depth Normal 03/05/23 11:25 Blood Pressure 161/106 H 03/05/23 11:23 Blood Pressure Position Sitting 03/05/23 11:23 Pulse Oximetry 96 03/05/23 11:23 Oxygen Delivery Method Room Air 03/05/23 11:23 Oxygen Flow Rate 0 03/05/23 11:23 Pain Level 0 03/05/23 11:23
[2023-03-05] MEDS: Albuterol HFA 8 GM 60 PUFF INH IH (13:36)
== END 2023-03-05 13:36 | disposition home or self-care (01) ==
PROVIDERS: Emergency Provider Physician Assistant; PCP Nurse Practitioner Family
DX: J40 Bronchitis, not specified as acute or chronic (principal); R06.02 Shortness of breath; R06.2 Wheezing; R05.9 Cough, unspecified
CPT/HCPCS: 94640; 99283; 71046; 99284; J7512; J7620

== ENCOUNTER 2023-05-16 16:00 | Emergency (ER) | payer MEDICAID, SELFPAY ==
[2023-05-16 16:12] VITALS: BP 140/99; PULSE 110; RESP 20; TEMP 36.8; O2SAT 99
--- NOTE | 2023-05-16 17:15 | W.ED.GENAD ---
Discharge Plan Disposition Patient Disposition: Home Condition: Improving Discharge Details Clinical Impression: Tobacco use disorder, Asthmatic bronchitis Primary Care Provider: Daniella Stout ED Provider: Nicole Marin Home Meds and New Rx's Prescriptions: New prednisone 20 mg tablet 60 mg PO DAILY 5 Days Qty: 15 0RF albuterol sulfate 90 mcg/actuation HFA aerosol inhaler 2 puff inhalation Q4H PRN (Reason: shortness of breath or wheezing) Qty: 8.5 0RF Continued albuterol sulfate 90 mcg/actuation HFA aerosol inhaler 1 - 2 puff inhalation Q4H PRN (Reason: shortness of breath or wheezing) Qty: 1 3RF Rx Instructions: Dispense brand of albuterol inhaler covered by patient's insurance Discharge Instructions Instructions: Acute Bronchitis (ED), Bronchospasm (ED) Additional Instructions: Recheck with your primary care doc within the week. You may need to be on an inhaled steroid if they think this is asthma. You may need to have additional outpatient testing ordered as well. Return to ED for severe difficulty breathing or chest pain. Use the albuterol 2 puffs every 4 hours and/or as needed for wheezing or breathing difficulty. Take the prednisone as prescribed starting tomorrow morning. Medical Decision Making Non toxic appearing on exam, improved after neb. I told him to follow-up with his primary care doc in the next week as he may need additional testing for asthma as well as an inhaled steroid to take on a routine basis. He will return for severe chest pain, difficulty breathing, fever, any other concerns. Medical Records Medical records reviewed: Yes I reviewed the patient's medical records. HPI General Date/Time Provider Initiated Documentation: 05/16/23 16:58. HPI Narrative: This 32-year-old male patient presents with a chief complaint of cough and wheezing that began 3 days ago. Patient states that he has had multiple episodes of this in the past 6 months. He does smoke. He has never been diagnosed with asthma. Prednisone and albuterol have helped him in the past but he is using his albuterol inhaler now and it does not seem to be better. He has no runny nose or congestion. There is no fever or chills. His throat feels dry but it does not hurt. He does not have any chest pain. He says when he coughs really hard the back of his head hurts a little bit. He has no pedal edema or calf pain. There is no nausea or vomiting. Related Data Home Medications Medication Instructions Recorded Confirmed albuterol sulfate 90 mcg/actuation 1 - 2 puff inhalation Q4H PRN 03/28/23 05/16/23 aerosol inhaler shortness of breath or wheezing #1 unit albuterol sulfate 90 mcg/actuation 2 puff inhalation Q4H PRN 05/16/23 aerosol inhaler shortness of breath or wheezing #8.5 grams prednisone 20 mg tablet 60 mg PO DAILY 5 days #15 tabs 05/16/23 Previous Rx's Medication Instructions Recorded albuterol sulfate 90 mcg/actuation 1 - 2 puff inhalation Q4H PRN 03/28/23 aerosol inhaler shortness of breath or wheezing #1 unit albuterol sulfate 90 mcg/actuation 2 puff inhalation Q4H PRN 05/16/23 aerosol inhaler shortness of breath or wheezing #8.5 grams prednisone 20 mg tablet 60 mg PO DAILY 5 days #15 tabs 05/16/23 Allergies Allergy/AdvReac Type Severity Reaction Status Date / Time No Known Allergies Allergy Verified 05/16/23 16:17 General Stated Complaint: SOB AUG[place]A: 4 Review of Systems Constitutional Constitutional: Denies chills, Denies fever(s), Denies headache(s) and Denies weakness Eyes Eyes: Denies diplopia and Reports other (no redness) ENT Ears, Nose, Mouth, and Throat: Denies otalgia, Denies headache(s), Denies nasal congestion, Denies nasal discharge, Denies neck pain and Denies sore throat Cardiovascular Cardiovascular: Denies chest pain, Denies palpitations and Reports dyspnea Respiratory Respiratory: Reports cough, Reports dyspnea and Reports wheezing Gastrointestinal Gastrointestinal: Denies abdominal pain, Denies diarrhea, Denies nausea and Denies vomiting Genitourinary Genitourinary: Denies difficulty urinating and Denies dysuria Musculoskeletal Musculoskeletal: Denies myalgias, Denies muscle weakness, Denies neck pain, Denies numbness and Reports other (edema) Integumentary/Breasts Skin/Breast: Denies change in pigmentation and Denies rash Neurologic Neurologic: Denies headache(s), Denies numbness and Denies weakness Endocrine Endocrine: Denies palpitations Allergic/Immunologic Allergic/Immunologic: Reports wheezing PFSH All Active Problems (Updated 05/16/23 @ 18:53 by Nicole Marin MD) Asthmatic bronchitis (Acute) Tobacco use disorder (Chronic) Medical History Anxiety Tx with fluoxetine in the past Depression Tx with fluoxetine in the past Panic disorder Family History Mother Asthma Depression Diabetes Anxiety Father Diabetes Blindness and renal failure 2/2 DM Heart disease Maternal Grandmother Cancer Social History Smoking/Tobacco Use Status: Current every day Tobacco Type: cigarettes Smoking packs per day: 0.75 Smoking cigarettes per day: 15.0 Years smoked: 15 Smoking pack-years: 11.25 Tobacco: How many years used: 11 Quit status: not considering quitting Second Hand Exposure: Yes Smoking risk assessment performed?: Yes Alcohol Intake: current Alcohol Intake frequency: a few times a week Alcohol type: hard liquor Details: 12/2021: 1-2 times per week, ~6 servings at a time Drug use: Never Substance use type: does not use Adopted: No Caregiver/Support person: No Foster care: No Household members: significant other Housing: apartment Number of Children: 2 Communication Needs: None Education Level: middle school Do you need help understanding health information?: Never current occupation: Cook at [employer] Pets and animals: Yes (rabbit) Pets and animals: cat(s) and other Details: Rabbit Sexually active: Yes Do you think of yourself as: straight/heterosexual Current gender identity: male Other: 12/2021: Two kids, ages 2 & 4, adopted by mother's aunt, w/ occ contac What is your relationship status?: living with partner How often do you talk on the phone with friends or family?: twice per week How often do you get together with friends or relatives?: once per week Do you belong to any clubs or organized social groups?: no Panel score (0-1 are the most socially isolated patients): 2 What type of physical activity do you participate in: additional Details: Fast-paced work Duration: > 90 minutes/day Frequency: 5-6 times per week Dorina/Yarsanism: None Special dorina needs: No Seatbelt use: sometimes Helmet use: Yes Helmet use: sometimes Drive intox or ride w/intox courier delivery driver: No Do you feel safe at home: Yes Do you feel safe in your relationship?: Yes Exam Const General: no acute distress, well developed, well groomed and not in acute distress Nutritional Appearance: well nourished Orientation: alert and oriented x3 HENMT Head: normocephalic and atraumatic Ears: external ears normal Mouth: oropharynx normal and moist mucous membranes Throat: posterior oropharynx normal Eyes Conjunctivae: conjunctivae normal Neck Neck: full ROM and supple Chest Chest: normal inspection of the chest Resp Effort & Inspection: normal respiratory effort Auscultation: other (Decreased air movement with end expiratory wheezes) Cardio Rate: regular rate Rhythm: regular rhythm Heart Sounds: no murmurs and no rubs GI Inspection: normal to inspection Palpation: soft, nontender and other (non distended) Auscultation: normal bowel sounds Skin General skin exam: no rashes or lesions noted and other (pink, warm, dry) Neuro General: patient alert, patient awake and patient oriented x3 Speech: speech normal Motor: other (JOSHUA) Sensory Exam: no sensory deficits noted Extrem General: normal to inspection, full ROM and pedal edema present Psych Mental Status: mental status grossly normal Speech and Movement: speech and movement normal Affect: normal affect Course Vital Signs Vital signs: Vital Signs Temperature 36.8 C 05/16/23 16:12 Pulse 110 H 05/16/23 16:12 Respiratory Rate 05/16/23 16:12 Blood Pressure 140/99 H 05/16/23 16:12 Pulse Oximetry 99 05/16/23 16:12 Temperature 36.8 C 05/16/23 16:12 Pulse 110 H 05/16/23 16:12 Respiratory Rate 05/16/23 16:12 Blood Pressure 140/99 H 05/16/23 16:12 Blood Pressure Position Sitting 05/16/23 16:12 Pulse Oximetry 99 05/16/23 16:12 Oxygen Delivery Method Room Air 05/16/23 16:12 Oxygen Flow Rate 0 05/16/23 16:12
[2023-05-16] MEDS: Albuterol/Ipratropium 3 ML UPD VIAL UPD (17:47)
[2023-05-16] MEDS: predniSONE 20 MG TAB 60 MG PO (17:47)
[2023-05-16 17:52] VITALS: RESP 20
[2023-05-16 19:13] VITALS: BP 134/85; PULSE 112; RESP 18; TEMP 37; O2SAT 94
== END 2023-05-16 19:12 | disposition home or self-care (01) ==
PROVIDERS: Emergency Provider Emergency Medicine; PCP Nurse Practitioner Family
DX: J02.9 Acute pharyngitis, unspecified (principal); F17.210 Nicotine dependence, cigarettes, uncomplicated
CPT/HCPCS: 94640; 99284; J7512; J7620

== ENCOUNTER → 2023-05-17 10:42 | Outpatient (CLI) | payer MEDICAID, SELFPAY ==
--- NOTE | 2023-05-17 | DI.RAD_ITS ---
Exam(s) XR CHEST 2V PA LATERAL EXAM: XR CHEST 2V PA LATERAL CLINICAL HISTORY: COUGH R05.8 ? PNEUMONIA TECHNIQUE: 2D digital imaging was performed of the chest. Two images were obtained. PA and lateral views were obtained. COMPARISON: CR XR CHEST 2V PA LATERAL from 03/05/2023 FINDINGS: MEDIASTINUM: Normal. HEART: Normal. PULMONARY VASCULATURE: Normal. LUNGS: Mild central peribronchial thickening which can reflect bronchitis. No focal consolidations. PLEURAL SPACE: No pleural effusion or pneumothorax. BONE:Within normal limits for the patient's age. OTHER FINDINGS:Normal. IMPRESSION: 1. Mild peribronchial thickening which can reflect bronchitis. 2. No focal consolidations. DATA REPOSITORY: RADIATION DOSE DELIVERED:
--- NOTE | 2023-05-17 17:28 | DI.VRAD_ITS ---
PROCEDURE INFORMATION: Exam: XR Chest Exam date and time: 05/17/2023 5:14 PM Age: 32 years old Clinical indication: Other: Cough ? pneumonia TECHNIQUE: Imaging protocol: Radiologic exam of the chest. Views: 2 views. COMPARISON: CR XR CHEST 2V PA LATERAL 03/05/2023 12:56 PM FINDINGS: Lungs: There is no pulmonary vascular congestion. There is increased mild central peribronchial thickening. No pulmonary parenchymal airspace opacities are identified. Pleural spaces: There are no pleural effusions present. There is no evidence of pneumothorax. Heart/Mediastinum: The cardiomediastinal silhouette is within normal limits. Bones/joints: Unremarkable. IMPRESSION: 1. Increased mild central peribronchial thickening could reflect bronchitis. Recommend clinical correlation. 2. No pulmonary parenchymal airspace opacities identified. Dictated and Authenticated by: Jasper Youssef MD. Ordering:LEONOR Ramos MD
== END ==
PROVIDERS: PCP Nurse Practitioner Family; Visit Provider Physician Assistant Medical
DX: R05.8 Other specified cough (principal)
CPT/HCPCS: 71046

== ENCOUNTER 2023-05-17 16:40 | Outpatient (REF) | payer MEDICAID, SELFPAY ==
[2023-05-17 21:14] LABS: Source Nasal/Nares
[2023-05-17 22:02] LABS: COVID-19 PCR Negative (Negative)
== END 2023-05-17 16:41 | disposition home or self-care (01) ==
LOC: LBN 16:40
PROVIDERS: PCP Nurse Practitioner Family; Visit Provider Physician Assistant Medical
DX: J02.9 Acute pharyngitis, unspecified (principal); R05.8 Other specified cough; Z20.822 Contact with and (suspected) exposure to COVID-19
CPT/HCPCS: 87635; 87070

== ENCOUNTER 2023-06-28 00:43 | Emergency (ER) | payer MEDICAID, SELFPAY ==
[2023-06-28 00:50] VITALS: BP 168/97; PULSE 107; RESP 20; TEMP 36.7; O2SAT 95
[2023-06-28 00:54] VITALS: BP 168/97; PULSE 104; RESP 20; TEMP 36.6; O2SAT 92
--- NOTE | 2023-06-28 01:00 | DI.RAD_ITS ---
Exam(s) XR CHEST 2V PA LATERAL EXAM: XR CHEST 2V PA LATERAL CLINICAL HISTORY: cough TECHNIQUE: 2D digital imaging was performed. COMPARISON: CR,XR XR CHEST 2V PA LATERAL from 05/17/2023 FINDINGS: HEART: Normal size. Aorta: Not dilated. PULMONARY VASCULATURE: Normal. LUNGS: Clear. PLEURAL SPACE: No pleural effusion or pneumothorax. BONE:Unremarkable for age. IMPRESSION: No acute abnormality. DATA REPOSITORY: RADIATION DOSE DELIVERED:
--- NOTE | 2023-06-28 01:10 | ED.GENADUL_ITS ---
Discharge Plan Disposition Patient Disposition: Home Condition: Improving Discharge Details Chief Complaint: SOB Clinical Impression: Cough, Wheeze Primary Care Provider: Daniella Stout ED Provider: Rick Chopra Home Meds and New Rx's Prescriptions: No Action fluticasone propion-salmeterol [Advair Diskus] 250-50 mcg/dose blister with device 1 inh inhalation BID Qty: 180 3RF albuterol sulfate 90 mcg/actuation HFA aerosol inhaler 2 puff inhalation Q4H PRN (Reason: shortness of breath or wheezing) Qty: 8.5 0RF Discharge Instructions Instructions: Acute Cough (ED) Medical Decision Making 32-year-old male history of smoking presents with bilateral expiratory wheeze cough productive, some episodes of posttussive emesis. Tachycardic on arrival afebrile nontoxic maintaining airway tolerating secretions, oxygen saturation 92 to 95% on room air. Trial of nebs steroids acetaminophen, Zofran fluids will obtain basic labs and chest x-ray. Likely viral URI versus pneumonia. 3: 39 rest comfortably no acute distress x-ray clear. Patient feeling better. Home care instructions return precautions given patient has albuterol inhaler at home HPI General Date/Time Provider Initiated Documentation: 06/28/23 00:44 . HPI Narrative: 32-year-old male history of smoking, presents with cough wheezing morning 2 episodes of vomiting after coughing. Related Data Home Medications Medication Instructions Recorded Confirmed albuterol sulfate 90 mcg/actuation 2 puff inhalation Q4H PRN 05/16/23 05/24/23 aerosol inhaler shortness of breath or wheezing #8.5 grams fluticasone 250 mcg-salmeterol 50 1 inh inhalation BID #180 ea 05/24/23 05/24/23 mcg/dose blistr powdr for inhalation (Advair Diskus) Previous Rx's Medication Instructions Recorded albuterol sulfate 90 mcg/actuation 2 puff inhalation Q4H PRN 05/16/23 aerosol inhaler shortness of breath or wheezing #8.5 grams fluticasone 250 mcg-salmeterol 50 1 inh inhalation BID #180 ea 05/24/23 mcg/dose blistr powdr for inhalation (Advair Diskus) Allergies Allergy/AdvReac Type Severity Reaction Status Date / Time No Known Allergies Allergy Verified 05/24/23 10:33 General Stated Complaint: SOB [place]: 3 Review of Systems Narrative: Review of Systems Constitutional: negative Eyes: negative ENT: negative Cardiovascular: negative Respiratory: Cough, wheezing Gastrointestinal: negative : negative Musculoskeletal: negative Skin: negative Neurologic: negative Psych: negative PFSH All Active Problems (Updated 06/28/23 @ 03:39 by Rick Chopra MD) Wheeze (Acute) Cough (Acute) Bronchitis with bronchospasm (Acute) Tobacco use disorder (Chronic) Medical History Anxiety Tx with fluoxetine in the past Depression Tx with fluoxetine in the past Panic disorder Family History Mother Asthma Depression Diabetes Anxiety Father Diabetes Blindness and renal failure 2/2 DM Heart disease Maternal Grandmother Cancer Social History Smoking/Tobacco Use Status: Current every day Tobacco Type: cigarettes Smoking packs per day: 0.75 Smoking cigarettes per day: 15.0 Years smoked: 15 Smoking pack-years: 11.25 Tobacco: How many years used: 11 Quit status: not considering quitting Second Hand Exposure: Yes Smoking risk assessment performed?: Yes Alcohol Intake: current Alcohol Intake frequency: a few times a week Alcohol type: hard liquor Details: 12/2021: 1-2 times per week, ~6 servings at a time Drug use: Never Substance use type: does not use Adopted: No Caregiver/Support person: No Foster care: No Household members: significant other Housing: apartment Number of Children: 2 Communication Needs: None Education Level: middle school Do you need help understanding health information?: Never 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[employer] Pets and animals: Yes (rabbit) Pets and animals: cat(s) and other Details: Rabbit Sexually active: Yes Do you think of yourself as: straight/heterosexual Current gender identity: male Other: 12/2021: Two kids, ages 2 & 4, adopted by mother's aunt, w/ occ contac What is your relationship status?: living with partner How often do you talk on the phone with friends or family?: twice per week How often do you get together with friends or relatives?: once per week Do you belong to any clubs or organized social groups?: no Panel score (0-1 are the most socially isolated patients): 2 What type of physical activity do you participate in: additional Details: Fast-paced work Duration: > 90 minutes/day Frequency: 5-6 times per week Dorina/Nondenominational: None Special dorina needs: No Seatbelt use: sometimes Helmet use: Yes Helmet use: sometimes Drive intox or ride w/intox trackless trolley driver: No Do you feel safe at home: Yes Do you feel safe in your relationship?: Yes Exam Narrative Exam Narrative: Physical Examination General: alert, awake, cooperative, resting comfortably, no acute distress HEENT: normocephalic, atraumatic; PERRL, EOM intact, conjunctiva normal; no nasal discharge; moist mucous membranes, oral and pharyngeal mucosa normal, tolerating secretions Neck: supple, trachea midline; full ROM Chest: normal to inspection Respiratory: normal respiratory effort, speaking in full sentences, bilateral expiratory wheeze Cardiac: Tachycardia, regular rhythm, S1S2 intact, no murmurs rubs or gallops GI: abdomen soft, non-tender, non-distended; no palpable mass or hepatosplenomegaly Skin: no lesions, rashes or trauma appreciated Neuro: AAOx3, normal speech, moving all extremities Psych: Appropriate mood and affect Course Vital Signs Vital signs: Vital Signs Temperature 36.7 C 06/28/23 00:50 Pulse 107 H 06/28/23 00:50 Respiratory Rate 20 06/28/23 00:50 Blood Pressure 168/97 H 06/28/23 00:50 Pulse Oximetry 95 06/28/23 00:50 Temperature 36.6 C 06/28/23 00:54 Temperature Source Oral 06/28/23 00:50 Pulse 104 H 06/28/23 00:54 Respiratory Rate 20 06/28/23 00:54 Respiratory Effort Normal, Short of Breath 06/28/23 00:54 Respiratory Depth Normal 06/28/23 00:54 Blood Pressure 168/97 H 06/28/23 00:54 Pulse Oximetry 92 06/28/23 00:54 Oxygen Delivery Method Room Air 06/28/23 00:54 Oxygen Flow Rate 0 06/28/23 00:50 Pain Level 8 06/28/23 00:54 PAWSS Have you Been Recently Intoxicated or Drunk Within the Last 30 days?: No Have you Ever Experienced Previous Episodes of Alcohol Withdrawal?: No Have you ever Experienced Withdrawal Seizures?: No Have you ever Experienced Delirium Tremens(DT)s?: No Have you ever undergone Alcohol Rehabilitation Treatment (i.e, inpt ot outpatient treatment programs)?: No Have you ever Experienced Blackouts?: No Have you ever Combined Alcohol with other Downers within the last 90 days?: No Have you ever Combined Alcohol with any other Substance of Abuse during the last 90 days?: No Positive Blood Alcohol level on Presentation? [PCS.BAL]: No Evidence of Increased Autonomic Activity (i.e. HR>120, tremor, sweating, agitation, nausea)?: No Result: 0
[2023-06-28 01:17] LABS: Abs Immature Grans 0.05 10^3/uL (0.0-0.06); Absolute Basophil Count 0.06 10^3/uL (0.0-0.2); Absolute Eosinophil Count 0.76 10^3/uL (0.0-0.7); Basophils % 0.4; Eosinophils % 5.4; HCT 41.8 % (40.0-50.0); HGB 14.6 g/dL (13.5-17.5); Immature Grans % 0.4; Lymphocytes % 16.1; MCH 30.5 pg (27.0-33.0); MCHC 34.9 % (32.0-36.0); MCV 87 fL (80-95); MPV 9.7 fL (8.0-11.0); Neutrophils % 71.7; Platelet Count 285 10^3/uL (130-400); RBC 4.78 10^6/uL (4.36-5.78); RDW 12.3 % (11.8-14.1); RDW-SD 39.3 fL; WBC 14.08 10^3/uL (4.4-10.8)
[2023-06-28 01:20] LABS: Absolute Lymphocyte Count 2.27 10^3/uL (1.2-3.4); Absolute Monocyte Count 0.84 10^3/uL (0.1-0.8)
[2023-06-28] MEDS: Acetaminophen 325 MG TAB 650 MG PO (01:22)
[2023-06-28] MEDS: Ondansetron 4 MG/2 ML VIAL IVP (01:24)
[2023-06-28] MEDS: Dexamethasone 10 MG/ML VIAL IVP (01:25)
[2023-06-28] MEDS: Albuterol/Ipratropium 3 ML UPD VIAL 6 ML UPD (01:26)
[2023-06-28] MEDS: Normal Saline 1,000 ML 1000 ML IV (01:27)
[2023-06-28 01:32] LABS: ALT 16 U/L (16-63); AST 20 U/L (15-37); Albumin 4.1 g/dL (3.4-5.0); Alkaline Phosphatase 72 U/L (46-116); Anion Gap 11.6 mmol/L (3-11); BUN 11 mg/dL (7-18); Bilirubin, Total 0.3 mg/dL (0.2-1.0); CO2 22.4 mmol/L (21.0-32.0); CREATININE 0.8 mg/dL (0.70-1.30); Calcium 9.4 mg/dL (8.5-10.1); Chloride 102 mmol/L (98-107); Glucose 110 mg/dL (74-106); Potassium 4.1 mmol/L (3.5-5.1); Sodium 136 mmol/L (136-145)
[2023-06-28 01:54] LABS: COVID-19 PCR Negative (Negative); Influenza A PCR Negative (Negative); Influenza B PCR Negative (Negative); RSV PCR Negative (Negative)
[2023-06-28 01:57] LABS: Source Nasopharynx
[2023-06-28 02:41] VITALS: BP 147/86; O2SAT 96
--- NOTE | 2023-06-28 03:14 | DI.VRAD_ITS ---
PROCEDURE INFORMATION: Exam: XR Chest Exam date and time: 06/28/2023 2:33 AM Age: 32 years old Clinical indication: Cough TECHNIQUE: Imaging protocol: Radiologic exam of the chest. Views: 2 views. COMPARISON: CR XR CHEST 2V PA LATERAL 05/17/2023 5:14 PM FINDINGS: Lungs: Unremarkable. No consolidation. Pleural spaces: Unremarkable. No pleural effusion. No pneumothorax. Heart/Mediastinum: Unremarkable. No cardiomegaly. Bones/joints: Unremarkable. IMPRESSION: No acute findings. Dictated and Authenticated by: Leonard Hussein MD. Ordering:CRISTOFER Cabrera MD
== END 2023-06-28 03:52 | disposition home or self-care (01) ==
PROVIDERS: Emergency Provider Emergency Medicine; PCP Nurse Practitioner Family
DX: R05.9 Cough, unspecified (principal); Z20.822 Contact with and (suspected) exposure to COVID-19; Z87.891 Personal history of nicotine dependence
CPT/HCPCS: 80053; 87637; 99283; 71046; 85025; J1100; J2405; J7620

== ENCOUNTER 2023-07-04 02:39 | Outpatient (CLI) | payer MEDICAID, SELFPAY ==
[2023-07-04] MEDS: Inhaler, Assist Device 1 EACH MC (16:20)
[2023-07-04] MEDS: Levalbuterol HFA 15 GM INH 4 PUFF IH (16:20)
--- NOTE | 2023-07-05 09:13 | W.PFT ---
Date of service: 07/04/23 Time of Service: 15:12 Pulmonary Function Test Result Indications: Cough Interpretation Spirometry: There is moderate airflow limitation. There is a significant bronchodilator response. Lung Volumes: There is hyperinflation and air trapping. Diffusion Capacity: Normal diffusion Airway Pressure: Increased airways resistance. Impression Moderate airflow obstruction with air trapping and hyperinflation but a normal diffusion. This could represent severe asthma with airway remodelling or COPD (chronic bronchitis). Clinical Correlation therefore is recommended.
== END 2023-07-04 02:40 | disposition home or self-care (01) ==
LOC: RT 02:40
PROVIDERS: PCP Nurse Practitioner Family; Visit Provider Student in an Organized Health Care Education/Training Program
DX: J98.01 Acute bronchospasm (principal); F17.210 Nicotine dependence, cigarettes, uncomplicated
CPT/HCPCS: 94060; 94726; 94729

== ENCOUNTER 2024-05-01 21:20 | Outpatient (REF) | payer SELFPAY | END 2024-05-01 21:21 | disposition home or self-care (01) | LOC: LBN 21:20 | PROVIDERS: PCP Nurse Practitioner Family; Visit Provider Physician Assistant Medical | DX: J02.9 Acute pharyngitis, unspecified (principal) | CPT/HCPCS: 87070 ==

== ENCOUNTER 2024-10-30 16:35 | Emergency (ER) | payer SELFPAY ==
[2024-10-30] VITALS (49 sets, daily range): BP systolic 126–166; BP diastolic 74–105; PULSE 59–97; RESP 14–26; TEMP 36.3; O2SAT 94–100
--- NOTE | 2024-10-30 16:46 | ED.GENADUL_ITS ---
Discharge Plan Disposition Patient Disposition: Home Condition: Stable Discharge Details Clinical Impression: Acute hypokalemia, Nausea & vomiting Primary Care Provider: Daniella Stout ED Provider: Eli Eubanks Home Meds and New Rx's Prescriptions: New ondansetron 4 mg tablet,disintegrating 4 mg PO Q8H PRN (Reason: nausea and vomiting) 4 Days Qty: 9 0RF Rx Instructions: Take 1 tablet up to 3 times daily as needed for nausea and vomiting 20 minutes prior to meals. No Action fluticasone propion-salmeterol [Advair Diskus] 250-50 mcg/dose blister with de vice 1 inh inhalation BID Qty: 180 3RF albuterol sulfate 90 mcg/actuation HFA aerosol inhaler 2 puff inhalation Q4H PRN (Reason: shortness of breath or wheezing) Qty: 8.5 0RF Discharge Instructions Instructions: Hypokalemia, High Potassium Diet, Nausea and Vomiting, Adult ED Additional Instructions: Please increase your diet intake of potassium such as bananas. You are given potassium supplement here in the emergency department. Please take the nausea medications up to 3 times daily as needed for nausea vomiting. The CT of your abdomen and pelvis is within normal limits. Please take small sips of fluids, small meals start with a bland diet and then advance as tolerated. Please stay away from anything fried fatty spicy or dairy. Follow up with primary care provider in 3-5 days. Return to ED sooner if any worsening vomiting feeling sicker at any time or concerns. Referrals: Daniella Stout, [employer] [Primary Care Provider] - 3 days HPI General Mode of arrival: EMS . Date/Time Provider Initiated Documentation: 10/30/24 16:39 . Limitations to Documentation: no limitations . Information obtained by: patient, EMS, RN notes reviewed and old records reviewed . HPI Narrative: 34-year-old male presents to the ER with a chief complaint of nausea vomiting which began around 1 PM this afternoon. Does have some blood type appearance to his emesis. Denies any diarrhea. Denies any abdominal pain. Does have a history of panic disorder anxiety depression. He does appear pale and diaphoretic upon arrival. He reports occasional alcohol use denies any drugs he does endorse smoking. Related Data Home Medications ?Medication ?Instructions ?Recorded ?Confirmed albuterol sulfate 90 mcg/actuation 2 puff inhalation Q4H PRN 05/16/23 10/30/24 aerosol inhaler shortness of breath or wheezing #8.5 grams fluticasone 250 mcg-salmeterol 50 1 inh inhalation BID #180 ea 05/24/23 10/30/24 mcg/dose blistr powdr for inhalation (Advair Diskus) ondansetron 4 mg disintegrating 4 mg PO Q8H PRN nausea and 10/30/24 tablet vomiting 4 days #9 tabs Previous Rx's ?Medication ?Instructions ?Recorded albuterol sulfate 90 mcg/actuation 2 puff inhalation Q4H PRN 05/16/23 aerosol inhaler shortness of breath or wheezing #8.5 grams fluticasone 250 mcg-salmeterol 50 1 inh inhalation BID #180 ea 05/24/23 mcg/dose blistr powdr for inhalation (Advair Diskus) ondansetron 4 mg disintegrating 4 mg PO Q8H PRN nausea and 10/30/24 tablet vomiting 4 days #9 tabs Allergies Allergy/AdvReac Type Severity Reaction Status Date / Time No Known Allergies Allergy Verified 10/30/24 17:21 General [place]: 3 Review of Systems All systems reviewed & are unremarkable except as noted in HPI and below Gastrointestinal Gastrointestinal: Reports nausea, Reports vomiting and Reports hematemesis Exam Narrative Exam Narrative: Constitutional: Alert and oriented x3. Appears stated age. Normal body habitus. Appears pale and diaphoretic. Actively vomiting. Head: Normocephalic, no trauma. Eyes: Pupils PERRL, Red reflex noted, EOM's intact. Eyelids symmetrical without lesions, discharge, or swelling. ENT: Bilateral TM's WNL, External ear normal to inspection, no mastoid TTP, swelling, or erythema, Nasal turbinates WNL, no nasal discharge. Normal dentition, Posterior pharynx WNL, no exudate. Chest: RRR, Normal S1, S2, distal pulses intact. Resp: Lungs clear to auscultation bilaterally, no wheezes, rales, or rhonchi. Abdomen: Soft, non-distended, Normoactive bowel sounds all 4 quads. Musculoskeletal: Normal gait, Moves all 4 extremities without difficulty. Skin: No suspicious rashes or lesions. Capillary refill less than 2 sec. Neurologic: Cranial nerves II-XII intact. Alert and oriented x 3. Motor: No deficits noted. Sensory: Intact bilaterally all 4 extremities. Hematologic/Lymphatic: No ecchymosis, no lymphadenopathy. Medical Decision Making 34-year-old male presents to the ER with a chief complaint of nausea vomiting which began around 1 PM this afternoon. Does have some blood type appearance to his emesis. Denies any diarrhea. Denies any abdominal pain. Does have a history of panic disorder anxiety depression. He does appear pale and diaphoretic upon arrival. He reports occasional alcohol use denies any drugs he does endorse smoking. Workup ordered including CBC CMP type and screen, PT PTT, lipase urinalysis, UDS ethyl alcohol level normal saline 1 L and 4 mg of Zofran and 40 mg of Protonix IV. Informed by staffing administrator that patient is complaining of dizziness. He does receive Zofran Protonix is getting a liter of normal saline. Labs and CT are pending. Informed by staffing administrator that patient was vomiting over in CT. Reglan 10 mg IV ordered. Patient does have leukocytosis with a white blood cell count of 21.59 neutrophils 17.40 CMP is pending at this time. 2049: Informed by staffing administrator that patient had another episode of emesis, 4 of Zofran ordered. Also informed by ED staff that the potassium infusion has not been infusing at this time. It has been pulling from the saline. It is now infusing. Will recheck repeat potassium in approximately 2 hours. Repeat CBC shows a white count of 13, repeat potassium 4.5. Will discharge patient to home with instructions to follow-up with in 3 to 5 days. Given Zofran to go. This text was generated using Spare to Shareation system, please disregard any oddities of phrase or misspellings. Medical Records Medical records reviewed: Yes I reviewed the patient's medical records. Imaging Data Radiologic Study: Imaging: CT Scan Radiologist's impression: FINDINGS: ABDOMEN and PELVIS: Lung Bases: No acute findings. Liver: Normal density. No suspicious mass. Gallbladder and biliary tract: No radiodense calculus. No wall thickening or pericholecystic fluid. No biliary dilation. Pancreas: Normal density. No abnormal calcifications or inflammatory process. No evidence of mass. Spleen: Normal. Kidneys: Normal size, contour and axis. No radiodense stones. No obstructive uropathy. No suspicious masses seen. Adrenal glands: No masses seen. Vasculature: Abdominal aorta non-dilated. Soft tissues: Unremarkable. Bladder: No gross wall thickening. No calculi.No focal mass. Bowel: No obstruction. No bowel wall thickening. Appendix normal.The colon is nearly empty. Peritoneal cavity: No ascites. No focal collection. No mesenteric inflammatory response. No free air. Bones: Unremarkable for age. Reproductive organs: Unremarkable. Lymph nodes: No pathologically enlarged lymph nodes. IMPRESSION:: No acute abnormality in the abdomen or pelvis. Lab Data Lab results reviewed: Yes I reviewed the patient's lab results. Labs: Laboratory Tests Range/Units 10/30/24 10/30/24 10/30/24 17:05 18:50 22:16 WBC (4.4-10.8) 10^3/uL 21.59 H RBC (4.36-5.78) 10^6/uL 5.11 Hgb (13.5-17.5) g/dL 16.1 Hct (40.0-50.0) % 45.5 MCV (80-95) fL 89 MCH (27.0-33.0) pg 31.5 MCHC (32.0-36.0) % 35.4 RDW (11.8-14.1) % 12.2 Plt Count (130-400) 10^3/uL 359 MPV (8.0-11.0) fL 10.2 Immature Gran % % 1.3 Neutrophils % % 80.6 Lymphocytes % % 13.8 Monocytes % % 3.8 Eosinophils % % 0.3 Basophils % % 0.2 Nucleated RBC % (0.0-0.3) % 0.0 Absolute Neutrophils (1.2-6.7) 10^3/uL 17.40 H Absolute Lymphocytes (1.2-3.4) 10^3/uL 2.98 Absolute Monocytes (0.1-0.8) 10^3/uL 0.82 H Absolute Eosinophils (0.0-0.7) 10^3/uL 0.06 Absolute Basophils (0.0-0.2) 10^3/uL 0.04 PT (9.1-11.1) sec 11.4 H INR (0.9-1.1) 1.1 APTT (20.6-30.2) sec 23.8 Sodium (136-145) mmol/L 143 142 Potassium (3.5-5.1) mmol/L 2.9 L* 5.1 D Chloride (98-107) mmol/L 103 107 Carbon Dioxide (21.0-32.0) mmol/L 24.7 27.7 Anion Gap (3-11) mmol/L 15.3 H 7.3 BUN (7-18) mg/dL 14 11 Creatinine (0.70-1.30) mg/dL 1.0 0.8 Est GFR (CKD-EPI 2020) (mL/min/1.73m2) 102.55 120.59 Glucose (74-106) mg/dL 217 H 124 H Calcium (8.5-10.1) mg/dL 9.7 9.3 Magnesium mg/dL 1.9 Total Bilirubin (0.2-1.0) mg/dL 0.5 AST (15-37) U/L 18 ALT (16-63) U/L 36 Alkaline Phosphatase (46-116) U/L 86 Total Protein (6.4-8.2) g/dL 8.7 H Albumin (3.4-5.0) g/dL 4.7 Lipase (<78) U/L 19 Urine Color (Yellow) Yellow Urine Clarity (Clear) Clear Urine pH (5-8) 6.0 Ur Specific [place] (1.005-1.025) 1.015 Urine Protein (Neg-Trace) mg/dL Trace Urine Ketones (Negative) mg/dL 15 H Urine Blood (Negative) Negative Urine Nitrite (Negative) Negative Urine Bilirubin (Negative) Negative Urine Urobilinogen (Up to 0.2) mg/dL 0.2 Ur Leukocyte Esterase (Negative) Negative Urine Glucose (Negative) mg/dL 100 H Urine Opiates Screen (Negative) Negative Urine Methadone Screen (Negative) Negative Ur Barbiturates Screen (Negative) Negative Ur Tricyclics Screen (Negative) Negative Ur Amphetamines Screen (Negative) Negative U Benzodiazepines Scrn (Negative) Negative Urine Cocaine Screen (Negative) Negative Ur THC Screen (Negative) Negative Ethyl Alcohol (<10) mg/dL < 3.0 Add-On Test Request DONE ABO/Rh A Positive Antibody Screen NEGATIVE Range/Units 10/30/24 23:16 WBC (4.4-10.8) 10^3/uL 13.96 H RBC (4.36-5.78) 10^6/uL 4.74 Hgb (13.5-17.5) g/dL 14.6 Hct (40.0-50.0) % 42.5 MCV (80-95) fL 90 MCH (27.0-33.0) pg 30.8 MCHC (32.0-36.0) % 34.4 RDW (11.8-14.1) % 12.2 Plt Count (130-400) 10^3/uL 280 MPV (8.0-11.0) fL 9.7 Immature Gran % % Neutrophils % % Lymphocytes % % Monocytes % % Eosinophils % % Basophils % % Nucleated RBC % (0.0-0.3) % Absolute Neutrophils (1.2-6.7) 10^3/uL Absolute Lymphocytes (1.2-3.4) 10^3/uL Absolute Monocytes (0.1-0.8) 10^3/uL Absolute Eosinophils (0.0-0.7) 10^3/uL Absolute Basophils (0.0-0.2) 10^3/uL PT (9.1-11.1) sec INR (0.9-1.1) APTT (20.6-30.2) sec Sodium (136-145) mmol/L Potassium (3.5-5.1) mmol/L 4.5 Chloride (98-107) mmol/L Carbon Dioxide (21.0-32.0) mmol/L Anion Gap (3-11) mmol/L BUN (7-18) mg/dL Creatinine (0.70-1.30) mg/dL Est GFR (CKD-EPI 2020) (mL/min/1.73m2) Glucose (74-106) mg/dL Calcium (8.5-10.1) mg/dL Magnesium mg/dL Total Bilirubin (0.2-1.0) mg/dL AST (15-37) U/L ALT (16-63) U/L Alkaline Phosphatase (46-116) U/L Total Protein (6.4-8.2) g/dL Albumin (3.4-5.0) g/dL Lipase (<78) U/L Urine Color (Yellow) Urine Clarity (Clear) Urine pH (5-8) Ur Specific [place] (1.005-1.025) Urine Protein (Neg-Trace) mg/dL Urine Ketones (Negative) mg/dL Urine Blood (Negative) Urine Nitrite (Negative) Urine Bilirubin (Negative) Urine Urobilinogen (Up to 0.2) mg/dL Ur Leukocyte Esterase (Negative) Urine Glucose (Negative) mg/dL Urine Opiates Screen (Negative) Urine Methadone Screen (Negative) Ur Barbiturates Screen (Negative) Ur Tricyclics Screen (Negative) Ur Amphetamines Screen (Negative) U Benzodiazepines Scrn (Negative) Urine Cocaine Screen (Negative) Ur THC Screen (Negative) Ethyl Alcohol (<10) mg/dL Add-On Test Request ABO/Rh Antibody Screen Quality:SDOH Health Related Social Needs: No Data to Display PFSH All Active Problems (Updated 10/30/24 @ 23:00 by Eli Eubanks NP) Nausea & vomiting (Acute) Acute hypokalemia (Acute) Bronchitis with bronchospasm (Acute) Tobacco use disorder (Chronic) Medical History Panic disorder Anxiety Tx with fluoxetine in the past Depression Tx with fluoxetine in the past Family History Mother Asthma Depression Diabetes Anxiety Father Diabetes Blindness and renal failure 2/2 DM Heart disease Maternal Grandmother Cancer Social History Smoking/Tobacco Use Status: Current every day Tobacco Type: cigarettes Smoking packs per day: 0.75 Smoking cigarettes per day: 15.0 Years smoked: 15 Smoking pack-years: 11.25 Tobacco: How many years used: 11 Quit status: not considering quitting Second Hand Exposure: Yes Smoking risk assessment performed?: Yes Alcohol Intake: current Alcohol Intake frequency: a few times a week Alcohol type: hard liquor Details: 12/2021: 1-2 times per week, ~6 servings at a time Drug use: Never Substance use type: does not use Adopted: No Caregiver/Support person: No Foster care: No Household members: significant other Housing: apartment Number of Children: 2 Communication Needs: None Education Level: middle school Do you need help understanding health information?: Never current occupation: Cook at [employer] Pets and animals: Yes (rabbit) Pets and animals: cat(s) and other Details: Rabbit Sexually active: Yes Do you think of yourself as: straight/heterosexual Current gender identity: male Other: 12/2021: Two kids, ages 2 & 4, adopted by mother's aunt, w/ occ contac What is your relationship status?: living with partner How often do you talk on the phone with friends or family?: twice per week How often do you get together with friends or relatives?: once per week Do you belong to any clubs or organized social groups?: no Panel score (0-1 are the most socially isolated patients): 2 What type of physical activity do you participate in: additional Details: Fast-paced work Duration: > 90 minutes/day Frequency: 5-6 times per week Dorina/Temple: None Special dorina needs: No Seatbelt use: sometimes Helmet use: Yes Helmet use: sometimes Drive intox or ride w/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
--- NOTE | 2024-10-30 17:00 | DI.CT_ITS ---
Exam(s) CT ABDOMEN PELVIS W EXAM: CT ABDOMEN PELVIS W CLINICAL HISTORY: Vomiting. TECHNIQUE: Imaging Protocol: Axial computed tomography images with coronal and sagittal reformatted images were created and reviewed CONTRAST MATERIAL: Intravenous: Omnipaque 350 Contrast volume:75 ml Oral: no COMPARISON: CT RENAL COLIC WO CONTRAST from 05/13/2017 FINDINGS: ABDOMEN and PELVIS: Lung Bases: No acute findings. Liver: Normal density. No suspicious mass. Gallbladder and biliary tract: No radiodense calculus. No wall thickening or pericholecystic fluid. No biliary dilation. Pancreas: Normal density. No abnormal calcifications or inflammatory process. No evidence of mass. Spleen: Normal. Kidneys: Normal size, contour and axis. No radiodense stones. No obstructive uropathy. No suspicious masses seen. Adrenal glands: No masses seen. Vasculature: Abdominal aorta non-dilated. Soft tissues: Unremarkable. Bladder: No gross wall thickening. No calculi.No focal mass. Bowel: No obstruction. No bowel wall thickening. Appendix normal.The colon is nearly empty. Peritoneal cavity: No ascites. No focal collection. No mesenteric inflammatory response. No free air . Bones: Unremarkable for age. Reproductive organs: Unremarkable. Lymph nodes: No pathologically enlarged lymph nodes. IMPRESSION:: No acute abnormality in the abdomen or pelvis. RADIATION DOSE DELIVERED: Total DLP DATA REPOSITORY: All CT scans at this facility are submitted to the National Radiology Data Registry (NRDR) Dose Index Registry (DIR) with the [employer] (ACR). RADIATION OPTIMIZATION: All CT scans at this facility use at least one of these dose optimization te chniques: automated exposure control; mA and/or kV adjustment per patient size (includes targeted exa ms where dose is matched to clinical indication); or iterative reconstruction.
[2024-10-30] MEDS: Ondansetron 4 MG/2 ML VIAL IVP ×2 (17:04→20:51)
[2024-10-30] MEDS: Pantoprazole 40 MG VIAL IVP (17:05)
[2024-10-30] MEDS: Normal Saline 500 ML 1000 ML IV (17:07)
[2024-10-30 17:30] LABS: Abs Immature Grans 0.27 10^3/uL (0.0-0.06); Absolute Eosinophil Count 0.06 10^3/uL (0.0-0.7); Basophils % 0.2 %; Eosinophils % 0.3 %; HCT 45.5 % (40.0-50.0); HGB 16.1 g/dL (13.5-17.5); Immature Grans % 1.3 %; Lymphocytes % 13.8 %; MCH 31.5 pg (27.0-33.0); MCHC 35.4 % (32.0-36.0); MCV 89 fL (80-95); MPV 10.2 fL (8.0-11.0); Monocytes % 3.8 %; Neutrophils % 80.6 %; Platelet Count 359 10^3/uL (130-400); RBC 5.11 10^6/uL (4.36-5.78); RDW 12.2 % (11.8-14.1); RDW-SD 40.5 fL; WBC 21.59 10^3/uL (4.4-10.8)
[2024-10-30 17:31] LABS: INR 1.1 (0.9-1.1); PTT Activated 23.8 sec (20.6-30.2); Prothrombin Time 11.4 sec (9.1-11.1)
[2024-10-30 17:38] LABS: Absolute Basophil Count 0.04 10^3/uL (0.0-0.2); Absolute Lymphocyte Count 2.98 10^3/uL (1.2-3.4); Absolute Monocyte Count 0.82 10^3/uL (0.1-0.8)
[2024-10-30] MEDS: Normal Saline - Diluent 50 ML VIAL IJ (17:48)
[2024-10-30] MEDS: Omnipaque 350 MG/ML 100 ML BTL 75 ML IJ (17:48)
[2024-10-30 17:53] LABS: ALT 36 U/L (16-63); AST 18 U/L (15-37); Albumin 4.7 g/dL (3.4-5.0); Alkaline Phosphatase 86 U/L (46-116); Anion Gap 15.3 mmol/L (3-11); BUN 14 mg/dL (7-18); Bilirubin, Total 0.5 mg/dL (0.2-1.0); CO2 24.7 mmol/L (21.0-32.0); Calcium 9.7 mg/dL (8.5-10.1); Chloride 103 mmol/L (98-107); Estimated GFR 102.55 (mL/min/1.73m2); Glucose 217 mg/dL (74-106); Lipase 19 U/L (<78); Sodium 143 mmol/L (136-145); Total Protein 8.7 g/dL (6.4-8.2)
[2024-10-30] MEDS: Metoclopramide 10 MG/2 ML VIAL IVP (17:53)
[2024-10-30 17:54] LABS: Potassium 2.9 mmol/L (3.5-5.1)
[2024-10-30 18:00] LABS: ETHANOL BLOOD < 3.0 mg/dL (<10)
--- NOTE | 2024-10-30 18:15 | RT.EKG_ITS ---
APPROVED REPORT Exam: Resting ECG Reason for Exam: Hypokalemia Patient Location: E HR:75 bpm ECG Measurements Heart Rate 75 AXIS MT 157 P 29 QRSd 107 QRS 37 QT 387 T -64 QTc 432 Conclusion Sinus rhythm...normal P axis, V-rate 60- 99 Nonspecific T abnormalities, diffuse leads...T <-0.10mV, ant/lat/inf Physician: new inversions in anterior and lateral leads
[2024-10-30 18:18] LABS: Lab Add On Test DONE; Magnesium 1.9 mg/dL
[2024-10-30] MEDS: Normal Saline 250 ML IV (18:38)
[2024-10-30] MEDS: Potassium Chloride Liquid 20 MEQ PKT 40 MEQ PO (18:38)
[2024-10-30] MEDS: POTASSIUM CHLORIDE 20 MEQ/100 ML BAG 50 MEQ IV_INF (18:39)
[2024-10-30 19:19] LABS: Bilirubin Negative (Negative); Blood Negative (Negative); Clarity Clear (Clear); Glucose 100 mg/dL (Negative); Ketones 15 mg/dL (Negative); Leukocyte Esterase Negative (Negative); Nitrite Negative (Negative); Specific Gravity 1.015 (1.005-1.025); Urobilinogen 0.2 mg/dL (Up to 0.2)
[2024-10-30 19:23] LABS: *AMPHETAMINES SCREEN URINE Negative (Negative); *BARBITURATES SCREEN URINE Negative (Negative); *BENZODIAZEPINES SCREEN URINE Negative (Negative); Cannabinoids THC Negative (Negative); Cocaine Screen,Urine Negative (Negative); METHADONE URINE SCREEN Negative (Negative); OPIATES URINE SCREEN Negative (Negative); Tricyclic Antidepressants Negative (Negative)
[2024-10-30 22:39] LABS: Anion Gap 7.3 mmol/L (3-11); BUN 11 mg/dL (7-18); CO2 27.7 mmol/L (21.0-32.0); CREATININE 0.8 mg/dL (0.70-1.30); Calcium 9.3 mg/dL (8.5-10.1); Chloride 107 mmol/L (98-107); Estimated GFR 120.59 (mL/min/1.73m2); Glucose 124 mg/dL (74-106); Sodium 142 mmol/L (136-145)
[2024-10-30 22:52] LABS: Potassium 5.1 mmol/L (3.5-5.1)
[2024-10-30 23:21] LABS: HCT 42.5 % (40.0-50.0); HGB 14.6 g/dL (13.5-17.5); MCH 30.8 pg (27.0-33.0); MCHC 34.4 % (32.0-36.0); MCV 90 fL (80-95); MPV 9.7 fL (8.0-11.0); Platelet Count 280 10^3/uL (130-400); RBC 4.74 10^6/uL (4.36-5.78); RDW 12.2 % (11.8-14.1); RDW-SD 40.4 fL; WBC 13.96 10^3/uL (4.4-10.8)
[2024-10-30 23:29] LABS: Potassium 4.5 mmol/L (3.5-5.1)
[2024-10-30] MEDS: Ondansetron O.D.T. 4 MG TABEF, 3 TABS/BTL PO (23:55)
== END 2024-10-30 23:56 | disposition home or self-care (01) ==
PROVIDERS: Emergency Provider Registered Nurse Emergency; PCP Nurse Practitioner Family
DX: E87.6 Hypokalemia (principal); R11.10 Vomiting, unspecified; F17.210 Nicotine dependence, cigarettes, uncomplicated
CPT/HCPCS: 36415; 80048; 80053; 80307; 83690; 85027; 86850; 86900; 86901; 93005; 96361; 96374; 96375; 96376; 99285; 74177; 80320; 81003; 83735; 84132; 85025; 85610; 85730; 93010; J2405; J2470; J2765; J3480; J3490

== ENCOUNTER 2025-05-31 16:41 | Emergency (ER) | payer SELFPAY ==
[2025-05-31 16:49] VITALS: BP 126/94; PULSE 94; RESP 18; TEMP 37
[2025-05-31 18:24] VITALS: BP 126/94; PULSE 94; RESP 18; TEMP 37
[2025-05-31] MEDS: Normal Saline 1,000 ML 1000 ML IV (18:27)
[2025-05-31 18:37] LABS: Glucose Negative (Negative)
[2025-05-31 19:20] LABS: Abs Immature Grans 0.05 10^3/uL (0.0-0.06); HCT 44.7 % (40.0-50.0); HGB 15.2 g/dL (13.5-17.5); Immature Grans % 0.5 %; MCH 30.2 pg (27.0-33.0); MCHC 34.0 % (32.0-36.0); MCV 89 fL (80-95); MPV 9.7 fL (8.0-11.0); Platelet Count 314 10^3/uL (130-400); RBC 5.03 10^6/uL (4.36-5.78); RDW 12.1 % (11.8-14.1); RDW-SD 39.6 fL; WBC 9.51 10^3/uL (4.4-10.8)
[2025-05-31 19:37] LABS: ALT 52 U/L (16-63); AST 23 U/L (15-37); Albumin 4.4 g/dL (3.4-5.0); Alkaline Phosphatase 80 U/L (46-116); Anion Gap 8.9 mmol/L (3-11); BUN 8 mg/dL (7-18); Bilirubin, Total 0.3 mg/dL (0.2-1.0); CO2 29.1 mmol/L (21.0-32.0); Calcium 9.2 mg/dL (8.5-10.1); Chloride 102 mmol/L (98-107); Estimated GFR 120.59 (mL/min/1.73m2); Glucose 91 mg/dL (74-106); Magnesium 2.1 mg/dL (1.8-2.4); Potassium 3.8 mmol/L (3.5-5.1); Sodium 140 mmol/L (136-145); Total Protein 7.9 g/dL (6.4-8.2)
[2025-05-31 21:05] LABS: EPI 027-NAP1-B1 PRESUMPTIVE NEGATIVE
--- NOTE | 2025-05-31 21:13 | ED.GENADUL_ITS ---
Discharge Plan Disposition Patient Disposition: Home Discharge Details Clinical Impression: Nausea vomiting and diarrhea Primary Care Provider: Daniella Stout ED Provider: Madeline Kern Home Meds and New Rx's Prescriptions: New ondansetron 4 mg tablet,disintegrating 4 mg PO TID PRN3 Days Qty: 10 0RF Continued fluticasone propion-salmeterol [Advair Diskus] 250-50 mcg/dose blister with device 1 inh inhalation BID Qty: 180 3RF meclizine 25 mg tablet 25 mg PO TID PRN (Reason: motion sickness) Qty: 30 0RF albuterol sulfate 90 mcg/actuation HFA aerosol inhaler 2 puff inhalation Q4H PRN (Reason: shortness of breath or wheezing) Qty: 8.5 0RF Discharge Instructions Instructions: Nausea and Vomiting, Adult ED Additional Instructions: Please take Zofran as needed for nausea and vomiting You may take Imodium if you are having more than 4 episodes of diarrhea daily, but do not take this for more than 2 or 3 days Make sure you are staying hydrated with eight 8 ounce glasses of water daily Please return with abdominal pain, fever, or should you have new or worsening complaints I will notify you if your stool cultures are abnormal Stand Alone Forms: Work Release HPI General Date/Time Provider Initiated Documentation: 05/31/25 17:13 . HPI Narrative: This 34-year-old male presents with nausea vomiting and diarrhea since Saturday. He presents today secondary to feeling really tired. He denies any blood in vomitus or stool. He states he had 2 episodes of diarrhea today and 3 episodes of vomiting. He states when he had this previously his electrolytes were off. Denies any abdominal pain or known sick contacts. His symptoms did start after eating some Satish chicken per patient. He is otherwise reportedly healthy denies any alcohol, illicit substance use, or marijuana use. Related Data Home Medications ?Medication ?Instructions ?Recorded ?Confirmed albuterol sulfate 90 mcg/actuation 2 puff inhalation Q 4H PRN 05/16/23 05/31/25 aerosol inhaler shortness of breath or wheez ing #8.5 grams fluticasone 250 mcg-salmeterol 50 1 inh inhalation BID #180 ea 05/24/23 05/31/25 mcg/dose blistr powdr for inhalation (Advair Diskus) meclizine 25 mg tablet 25 mg PO TID PRN motion sick ness 11/03/24 05/31/25 #30 tabs ondansetron 4 mg disintegrating 4 mg PO TID PRN 3 days #10 tabs 05/31/25 tablet Previous Rx's ?Medication ?Instructions ?Recorded albuterol sulfate 90 mcg/actuation 2 puff inhalation Q 4H PRN 05/16/23 aerosol inhaler shortness of breath or wheez ing #8.5 grams fluticasone 250 mcg-salmeterol 50 1 inh inhalation BID #180 ea 05/24/23 mcg/dose blistr powdr for inhalation (Advair Diskus) meclizine 25 mg tablet 25 mg PO TID PRN motion sick ness 11/03/24 #30 tabs ondansetron 4 mg disintegrating 4 mg PO TID PRN 3 days #10 tabs 05/31/25 tablet Allergies Allergy/AdvReac Type Severity Reaction Status Date / Time No Known Allergies Allergy Verified 05/31/25 16:53 General Stated Complaint: Nausea/Vomit/Diar [place]: 3 Exam Narrative Exam Narrative: Alert and oriented 34-year-old male nontender abdominal exam, no CVA tenderness oropharynx patent uvula midline, no rashes or lesions no rebound or guarding Course Vital Signs Vital signs: Vital Signs Temperature 37.0 C 05/31/25 16:49 Pulse 94 H 05/31/25 16:49 Respiratory Rate 18 05/31/25 16:49 Blood Pressure 126/94 H 05/31/25 16:49 Temperature 37.0 C 05/31/25 18:24 Temperature Source Oral 05/31/25 18:24 Pulse 94 H 05/31/25 18:24 Respiratory Rate 18 05/31/25 18:24 Blood Pressure 126/94 H 05/31/25 18:24 Oxygen Delivery Method Room Air 05/31/25 18:24 Oxygen Flow Rate 0 05/31/25 18:24 Pain Level 0 05/31/25 18:24 Lab/Test Results Lab/Test Results: Laboratory Tests Range/Units 05/31/25 05/31/25 05/31/25 17:20 19:15 20:12 WBC (4.4-10.8) 10^3/uL 9.51 RBC (4.36-5.78) 10^6/uL 5.03 Hgb (13.5-17.5) g/dL 15.2 Hct (40.0-50.0) % 44.7 MCV (80-95) fL 89 MCH (27.0-33.0) pg 30.2 MCHC (32.0-36.0) % 34.0 RDW (11.8-14.1) % 12.1 Plt Count (130-400) 10^3/uL 314 MPV (8.0-11.0) fL 9.7 Immature Gran % % 0.5 Neutrophils % % 60.0 Lymphocytes % % 32.4 Monocytes % % 5.8 Eosinophils % % 0.9 Basophils % % 0.4 Nucleated RBC % (0.0-0.3) % 0.0 Absolute Neutrophils (1.2-6.7) 10^3/uL 5.70 Absolute Lymphocytes (1.2-3.4) 10^3/uL 3.08 Absolute Monocytes (0.1-0.8) 10^3/uL 0.55 Absolute Eosinophils (0.0-0.7) 10^3/uL 0.09 Absolute Basophils (0.0-0.2) 10^3/uL 0.04 Sodium (136-145) mmol/L 140 Potassium (3.5-5.1) mmol/L 3.8 Chloride (98-107) mmol/L 102 Carbon Dioxide (21.0-32.0) mmol/L 29.1 Anion Gap (3-11) mmol/L 8.9 BUN (7-18) mg/dL 8 Creatinine (0.70-1.30) mg/dL 0.8 Est GFR (CKD-EPI 2020) (mL/min/1.73m2) 120.59 Glucose (74-106) mg/dL 91 Calcium (8.5-10.1) mg/dL 9.2 Magnesium (1.8-2.4) mg/dL 2.1 Total Bilirubin (0.2-1.0) mg/dL 0.3 AST (15-37) U/L 23 ALT (16-63) U/L 52 Alkaline Phosphatase (46-116) U/L 80 Total Protein (6.4-8.2) g/dL 7.9 Albumin (3.4-5.0) g/dL 4.4 Urine Color (Yellow) Yellow Urine Clarity (Clear) Clear Urine pH (5-8) 6.0 Ur Specific [place] (1.005-1.025) 1.015 Urine Protein (Neg-Trace) mg/dL Negative Urine Ketones (Negative) mg/dL Negative Urine Blood (Negative) Negative Urine Nitrite (Negative) Negative Urine Bilirubin (Negative) Negative Urine Urobilinogen (Up to 0.2) mg/dL 0.2 Ur Leukocyte Esterase (Negative) Negative Urine Glucose (Negative) mg/dL Negative Stl C.difficile Tox PCR (Negative) Negative Medical Decision Making Results: CBC, CMP, urinalysis did not show evidence of acute abnormality pending stool cultures Assessment and plan: Patient appears well, denies any current nausea given 1 L fluids. Abdomen nontender no indication for CT imaging at this time. Zofran for home work note supplied until Saturday. Discharged home in stable condition with stable vitals return precautions reviewed PFSH All Active Problems (Updated 05/31/25 @ 20:13 by LATOYA Jones) Nausea vomiting and diarrhea (Acute) Benign positional vertigo (Acute) Bronchitis with bronchospasm (Acute) Tobacco use disorder (Chronic) Medical History Panic disorder Anxiety Tx with fluoxetine in the past Depression Tx with fluoxetine in the past Family History Mother Asthma Depression Diabetes Anxiety Father Diabetes Blindness and renal failure 2/2 DM Heart disease Maternal Grandmother Cancer Social History Smoking/Tobacco Use Status: Current every day Tobacco Type: cigarettes Smoking packs per day: 0.75 Smoking cigarettes per day: 15.0 Years smoked: 15 Smoking pack-years: 11.25 and smokeless tobacco Tobacco: How many years used: 11 Quit status: not considering quitting Second Hand Exposure: Yes Smoking risk assessment performed?: Yes Alcohol Intake: former Details: 12/2021: 1-2 times per week, ~6 servings at a time Drug use: Never Substance use type: does not use Adopted: No Caregiver/Support person: No Foster care: No Household members: significant other Housing: apartment Number of Children: 2 Communication Needs: None Education Level: middle school Do you need help understanding health information?: Never current occupation: Cook at [employer] Pets and animals: Yes (rabbit) Pets and animals: cat(s) and other Details: Rabbit Sexually active: Yes Do you think of yourself as: straight/heterosexual Current gender identity: male Other: 12/2021: Two kids, ages 2 & 4, adopted by mother's aunt, w/ occ contac What is your relationship status?: living with partner How often do you talk on the phone with friends or family?: twice per week How often do you get together with friends or relatives?: once per week Do you belong to any clubs or organized social groups?: no Panel score (0-1 are the most socially isolated patients): 2 What type of physical activity do you participate in: additional Details: Fast-paced work Duration: > 90 minutes/day Frequency: 5-6 times per week Dorina/Episcopalian: None Special dorina needs: No Seatbelt use: sometimes Helmet use: Yes Helmet use: sometimes Drive intox 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
[2025-06-01 23:31] LABS: Campylobacter PCR Negative (Negative); Shiga Toxin PCR Negative (Negative); Shigella/Enteroinvasive Ecoli Negative (Negative)
== END 2025-05-31 20:51 | disposition home or self-care (01) ==
PROVIDERS: Emergency Provider Physician Assistant; PCP Nurse Practitioner Family
DX: R11.2 Nausea with vomiting, unspecified (principal); R19.7 Diarrhea, unspecified
CPT/HCPCS: 99283 ×2; 36415; 80053; 87505; 96360; 96361; 81003; 83735; 85025

== ENCOUNTER 2025-06-18 20:08 | Emergency (ER) | payer SELFPAY ==
[2025-06-18 20:15] VITALS: BP 161/101; PULSE 91; RESP 20; TEMP 37.1; O2SAT 96
[2025-06-18 20:17] VITALS: BP 168/94; PULSE 90; RESP 19; TEMP 37; O2SAT 96
--- NOTE | 2025-06-18 20:48 | W.ED.GENAD ---
Discharge Plan Disposition Patient Disposition: Home Condition: Stable Discharge Details Clinical Impression: Upper respiratory infection Primary Care Provider: None,None ED Provider: Dakotah Canales Home Meds and New Rx's Prescriptions: No Action fluticasone propion-salmeterol [Advair Diskus] 250-50 mcg/dose blister with device 1 inh inhalation BID Qty: 180 3RF meclizine 25 mg tablet 25 mg PO TID PRN (Reason: motion sickness) Qty: 30 0RF albuterol sulfate 90 mcg/actuation HFA aerosol inhaler 2 puff inhalation Q4H PRN (Reason: shortness of breath or wheezing) Qty: 8.5 0RF Discharge Instructions Instructions: Upper Respiratory Infection ED Additional Instructions: You were seen in the emergency department for your upper respiratory infection, your strep swab was negative we will send off a cultures and we will contact you if it is positive. You likely have a viral illness please take aggressive dosings of [id number] cold medicines and return for any respiratory distress or other emergent concerns. Stand Alone Forms: Work Release Discharge Data Discharge Date/Time-TO BE ENTERED AT DEPARTURE: 06/18/25 21:15 HPI General Date/Time Provider Initiated Documentation: 06/18/25 20:48. HPI Narrative: 34 year-old male presents to ED today by POV/ambulating with a chief complaint of sore throat, feverish, wonders if he has strep throat with onset for the past couple days. Quality described as generalized malaise, no radiation to trismus, vocal changes, inability to swallow, respiratory distress, nausea/vomiting. Severity is described as moderate. Palliating factors include Nyquil with mild relief. Provoking factors include nothing specific. Patient not anticoagulated. Related Data Home Medications Medication Instructions Recorded Confirmed albuterol sulfate 90 mcg/actuation 2 puff inhalation Q4H PRN 05/16/23 06/18/25 aerosol inhaler shortness of breath or wheezing Held on 06/18/25. #8.5 grams Instructions: Pt Stopped/Never Started fluticasone 250 mcg-salmeterol 50 1 inh inhalation BID #180 ea 05/24/23 06/18/25 mcg/dose blistr powdr for inhalation (Advair Diskus) Held on 06/18/25. Instructions: Pt Stopped/Never Started meclizine 25 mg tablet 25 mg PO TID PRN motion sickness 11/03/24 06/18/25 Held on 06/18/25. #30 tabs Instructions: Pt Stopped/Never Started Previous Rx's Medication Instructions Recorded albuterol sulfate 90 mcg/actuation 2 puff inhalation Q4H PRN 05/16/23 aerosol inhaler shortness of breath or wheezing Held on 06/18/25. #8.5 grams Instructions: Pt Stopped/Never Started fluticasone 250 mcg-salmeterol 50 1 inh inhalation BID #180 ea 05/24/23 mcg/dose blistr powdr for inhalation (Advair Diskus) Held on 06/18/25. Instructions: Pt Stopped/Never Started meclizine 25 mg tablet 25 mg PO TID PRN motion sickness 11/03/24 Held on 06/18/25. #30 tabs Instructions: Pt Stopped/Never Started Allergies Allergy/AdvReac Type Severity Reaction Status Date / Time No Known Allergies Allergy Verified 06/18/25 20:21 General Stated Complaint: Sorethroat [place]: 4 Review of Systems All systems reviewed & are unremarkable except as noted in HPI and below Exam Narrative Exam Narrative: GENERAL APPEARANCE: Well-nourished, non-toxic, awake and alert, atraumatic, no acute distress. SKIN: Warm, pink, dry, intact, without rashes/lesions/ulcerations. HEAD: Normocephalic, atraumatic, normal hair distribution for gender/age. EYES: Normal conjunctiva, no exudates on lids/lashes. ENT: Nares patent, no circumoral cyanosis, no facial swelling, mild erythema to posterior oropharynx, uvula midline, no trismus, no vocal changes, no mastoid tenderness bilaterally NECK: Supple, trachea midline, painless cervical ROM. LUNGS/CHEST: Lungs CTA bilaterally-no rhonchi/rales/wheeze diffusely, non-labored respirations, normal A/P diameter, symmetrical expansion, no chest wall deformity HEART (CV/PV): Regular rate and rhythm without murmur, no peripheral edema, no JVD. ABDOMEN: Soft, non-distended, no guarding. MSK: Normal ROM, no swelling/deformity to bilateral UEs or LEs, moving all extremities without weakness, no cyanosis, spine midline without tenderness, normal curvature. NEURO: Mental Status AAOx4 - alert to person, place, time, events No facial droop, no forehead involvement. Motor: No focal weakness - strength 5/5 in bilateral UEs and LEs, proximal and distal, symmetric. Sensory: sensation intact to light touch globally. Gait normal: patient ambulated without ataxia into ED room. PSYCH: euthymic, cooperative, pleasant, appropriate speech Course Vital Signs Vital signs: Vital Signs Temperature 37.1 C 06/18/25 20:15 Pulse 91 H 06/18/25 20:15 Respiratory Rate 20 06/18/25 20:15 Blood Pressure 161/101 H 06/18/25 20:15 Pulse Oximetry 96 06/18/25 20:15 Temperature 37.0 C 06/18/25 20:17 Temperature Source Temporal Artery Scan 06/18/25 20:17 Pulse 90 06/18/25 20:17 Respiratory Rate 19 06/18/25 20:17 Blood Pressure 168/94 H 06/18/25 20:17 Blood Pressure Position Sitting 06/18/25 20:17 Pulse Oximetry 96 06/18/25 20:17 Oxygen Delivery Method Room Air 06/18/25 20:17 Oxygen Flow Rate 0 06/18/25 20:15 Pain Level 8 06/18/25 20:17 Lab/Test Results Lab/Test Results: 06/18/25 20:05 Tonsil - Not Specified Group A Streptococcus Culture - Pending POC Strep Test-RADAMES(Rapid) Start: 06/18/25 20:26 Freq: .Rapid Strep Test Status: Active Protocol: Document 06/18/25 20:35 LB (Rec: 06/18/25 20:35 LB [id number]) Strep test-RADAMES(Rapid)-POC POC-Strep test-RADAMES ( Negative Rapid) POC-Strep test-RADAMES (Rapid) Negative Medical Decision Making This dictation utilizes [id number] dictation software and may contain unedited grammatical errors. 34 year-old male presents to ED today by POV/ambulating with a chief complaint of sore throat, feverish, wonders if he has strep throat with onset for the past couple days. Quality described as generalized malaise, no radiation to trismus, vocal changes, inability to swallow, respiratory distress, nausea/vomiting. Severity is described as moderate. Palliating factors include Nyquil with mild relief. Provoking factors include nothing specific. Patients' medical history: Anxiety. Family and social history: Tobacco use. Pertinent exam findings / vital signs include mild posterior oropharynx erythema without exudate, uvula midline, no trismus, no vocal changes, lungs CTA, no mastoid tenderness bilaterally. Differential / pathologies of concern include URI, strep pharyngitis. Diagnostic studies of: -Rapid strep test-negative. Interventions of: -P.o. Tylenol and Motrin. ED Course/Assessment/Plan: 34-year-old male presents with generalized malaise and upper respiratory infection symptoms, feels he may have strep is rapid strep is negative I counseled on salt water gargles and using therapeutic dose of Tylenol and ibuprofen provided work note for missed days counseled on strict return criteria for any respiratory distress or other emergent concerns. Findings not consistent with RPA/HIGH SCALER, respiratory distress, toxic presentation. Disposition of Upper Respiratory Infection. Patient verbalized understanding of the plan and return to ED criteria and engaged in shared decision making. Medical Records Medical records reviewed: Yes I reviewed the patient's medical records. Lab Data Lab results reviewed: Yes I reviewed the patient's lab results. Lab results narrative: Rapid strep negative Quality:SDOH Health Related Social Needs: Health related social needs house/econ circumstance Health related social needs details HEALTH INSURANCE PFSH All Active Problems (Updated 06/18/25 @ 20:52 by LATOYA Locke) Upper respiratory infection (Acute) Nausea vomiting and diarrhea (Acute) Benign positional vertigo (Acute) Bronchitis with bronchospasm (Acute) Tobacco use disorder (Chronic) Medical History Panic disorder Anxiety Tx with fluoxetine in the past Depression Tx with fluoxetine in the past Family History Mother Asthma Depression Diabetes Anxiety Father Diabetes Blindness and renal failure 2/2 DM Heart disease Maternal Grandmother Cancer Social History Smoking/Tobacco Use Status: Current every day Tobacco Type: cigarettes Smoking packs per day: 0.75 Smoking cigarettes per day: 15.0 Years smoked: 15 Smoking pack-years: 11.25 and smokeless tobacco Tobacco: How many years used: 11 Quit status: not considering quitting Second Hand Exposure: Yes Smoking risk assessment performed?: Yes Alcohol Intake: former Details: 12/2021: 1-2 times per week, ~6 servings at a time Drug use: Never Substance use type: does not use Adopted: No Caregiver/Support person: No Foster care: No Household members: significant other Housing: apartment Number of Children: 2 Communication Needs: None Education Level: middle school Do you need help understanding health information?: Never current occupation: Cook at [employer] Pets and animals: Yes (rabbit) Pets and animals: cat(s) and other Details: Rabbit Sexually active: Yes Do you think of yourself as: straight/heterosexual Current gender identity: male Other: 12/2021: Two kids, ages 2 & 4, adopted by mother's aunt, w/ occ contac What is your relationship status?: living with partner How often do you talk on the phone with friends or family?: twice per week How often do you get together with friends or relatives?: once per week Do you belong to any clubs or organized social groups?: no Panel score (0-1 are the most socially isolated patients): 2 What type of physical activity do you participate in: additional Details: Fast-paced work Duration: > 90 minutes/day Frequency: 5-6 times per week Dorina/Evangelical: None Special dorina needs: No Seatbelt use: sometimes Helmet use: Yes Helmet use: sometimes Drive intox or ride w/intox guard driver: No Do you feel safe at home: Yes Do you feel safe in your relationship?: Yes
[2025-06-18] MEDS: Acetaminophen 500 MG TAB 1000 MG PO (21:12)
[2025-06-18] MEDS: Ibuprofen 400 MG TAB PO (21:12)
== END 2025-06-18 21:15 | disposition home or self-care (01) ==
PROVIDERS: Emergency Provider Physician Assistant
DX: J06.9 Acute upper respiratory infection, unspecified (principal); Z59.89 Other problems related to housing and economic circumstances
CPT/HCPCS: 99282 ×2; 87880; 87081